=== PATIENT | female | born 2000 | race Caucasian/White ===

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

== ENCOUNTER 2021-05-30 10:31 | Emergency (ER) | payer OTHER ==
--- OUTSIDE RECORDS SUMMARY | 2021-05-30 10:34 | XMS REPORT | Continuity of Care Document ---
:2000 Author Organization [facility] t Address [address] [place] [address] Care Team Providers Name Role Phone Unknown Primary Care Physician Unavailable SNOQUALMIE Attending Clinician Unavailable MARKOS Attending Clinician Unavailable Gabi VARGAS Attending Clinician Unavailable JEIMY DO Attending Clinician Unavailable Federico ALEXANDRE Attending Clinician Unavailable Gabi Vargas MD Attending Clinician RADIOLOGY Attending Clinician Unavailable PEREZ Attending Clinician Unavailable Sharmila FRANCOIS Attending Clinician Unavailable REI Attending Clinician Unavailable Gabi VARGAS Admitting Clinician Unavailable PEREZ Admitting Clinician Unavailable Payers Payer Name Policy Type Policy Number Effective Date Expiration Date Gabi vega [facility] MEDICAID STAR [id number] 2020 00:00:00 [facility] [id number] 2018 CHOICE MEDICAID 00:00:00 [facility] [id number] 2020 [facility] 00:00:00 [place] [id number] SHARE [facility] (O) Problems Condition Condition Condition Status Onset Resolution Last Treating Co mments Source Name Details Category Date Date Treatment Clinician Date Breast Breast Disease Active 2020-03 [facility] asymmetry asymmetry 04-10 [facility]: 00 Breast Breast Disease Active 2020-03 Overview: UT mass, left mass, left 03-28 [facility] 00:00: g of this 00 note might be different from the original. 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 Omalley t 01/30 - Will schedule pt for resection No known No known Disease Unive rs active active ity of problems problems [facility] Contracept Contracept Problem Active U nivers cory cory ity of education education Kenneth rodriguez Physici ans BV BV Problem Active Univers (bacterial (bacterial it y of vaginosis) vaginosis[place] [facility] Allergies, Adverse Reactions, Alerts Allergy Allergy Status Severity Reaction(s) Onset Inactive Treating Comm ents Source Name Type Date Date Clinician NO KNOWN Drug Active Univers ALLERGIE Class ity of S [facility] Social History Social Habit Start Date Stop Date Quantity Comments Source History [facility] o f Alcohol Comment [facility] ical Branch Exposure to Not sure [facility] SARS-CoV-2 (event) Alcohol intake 2021-04-27 2021-04-27 Lifetime [facility] 00:00:00 00:00:00 non-drinker (finding) Tobacco use and 2021-01-26 2021-01-26 Smokeless tobacco [facility] exposure 00:00:00 00:00:00 non-user History [facility] 2019-11-30 2019-11-30 1 University o f Alcohol Frequency 00:00:00 00:00:00 [place] [facility] History [facility] 2019-11-30 2019-11-30 99 University o f Alcohol Std 00:00:00 00:00:00 [place] [facility] History [facility] 2019-11-30 2019-11-30 1 University o f Alcohol Binge 00:00:00 00:00:00 [place] [facility] Sex Assigned At 2000 2001 [facility] 00:00:00 00:00:00 Smoking Status Start Date Stop Date Source Never smoked tobacco [facility] Medications Ordered Filled Start Stop Current Ordering Indication Dosage Frequency Signature Comments Components Source Medication Medication Date Date Medication? Clinician (SIG) Name Name medroxyPROG 2022-0 Yes 150mg Inject 150 UT ESTERone 2-07 mg into Health (Depo-Prove 09:59: the ra) 150 35 shoulder, MG/ML thigh, or injection buttocks every 3 (three) months. medroxyPROG 2022-0 Yes 150mg Inject 150 UT ESTERone 1-17 mg into Health (Depo-Prove 09:38: the ra) 150 37 shoulder, MG/ML thigh, or injection buttocks every 3 (three) months. promethazin 2021- No [id number] 12.5mg Take 1 UT e 04-03 [id number] tablet Health (Phenergan) 00:00: 05:59 (12.5 mg 12.5 MG 00 :00 total) by tablet mouth every 8 (eight) hours if needed for nausea or vomiting for up to 5 days. naproxen 2021- Yes [id number] 500mg Take 1 UT (Naprosyn) 04-02 tablet Health 500 MG 00:00: 05:59 (500 mg tablet 00 :00 total) by mouth 2 (two) times a day with meals. naproxen 2021- Yes [id number] 500mg Take 1 UT (Naprosyn) 04-02 tablet Health 500 MG 00:00: 05:59 (500 mg tablet 00 :00 total) by mouth 2 (two) times a day with meals. promethazin 2021- No [id number] 12.5mg Q6H Insert 0.5 UT e 04-02 suppositor Health (Phenergan) 00:00: 05:59 ies (12.5 25 MG 00 :00 mg total) suppository into the rectum every 6 (six) hours if needed for nausea for up to 5 days. promethazin 2021- No [id number] 12.5mg Q6H Insert 0.5 UT e 04-02 suppositor Health (Phenergan) 00:00: 00:00 ies (12.5 25 MG 00 :00 mg total) suppository into the rectum every 6 (six) hours if needed for nausea for up to 5 days. medroxyPROG 2022-0 Yes 150mg Inject 150 UT ESTERone 1-06 mg into Health (Depo-Prove 08:38: the ra) 150 02 shoulder, MG/ML thigh, or injection buttocks every 3 (three) months. medroxyPROG 2022-0 Yes 150mg Inject 150 UT ESTERone 1-06 mg into Health (Depo-Prove 08:38: the ra) 150 02 shoulder, MG/ML thigh, or injection buttocks every 3 (three) months. acetaminoph 2021- Yes [id number] 1{tbl} Q6H Take 1 UT en-codeine 03-2511 tablet by [facility] (Tylenol w/ 00:00: 05:59 mouth Codeine #3) 00 :00 every 6 300-30 MG (six) tablet hours if needed for severe pain for up to 5 days. acetaminoph 2021- Yes [id number] 1{tbl} Q6H Take 1 UT en-codeine 03-2511 tablet by [facility] (Tylenol w/ 00:00: 05:59 mouth Codeine #3) 00 :00 every 6 300-30 MG (six) tablet hours if needed for severe pain for up to 5 days. medroxyPROG 2020-03 Yes 150mg Inject 150 UT ESTERone 1-29 mg into Health (Depo-Prove 09:18: the ra) 150 41 shoulder, MG/ML thigh, or injection buttocks every 3 (three) months. medroxyPROG 2020-03 Yes 150mg Inject 150 UT ESTERone 1-12 mg into Health (Depo-Prove 11:10: the ra) 150 30 shoulder, MG/ML thigh, or injection buttocks every 3 (three) months. medroxyPROG 2020-03 Yes 150mg Inject 150 UT ESTERone 1-08 mg into Health (Depo-Prove 13:39: the ra) 150 48 shoulder, MG/ML thigh, or injection buttocks every 3 (three) months. 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 [facility] [place] 00 Bedtime Physici ans Vital Signs Vital Name Observation Time Observation Value Comments Source Systolic blood 2021-04-27 15:59:00 97 mm[Hg] [facility] pressure Diastolic blood 2021-04-27 15:59:00 65 mm[Hg] [facility] pressure Heart rate 2021-04-27 15:59:00 68 /min [facility] Body temperature 2021-04-27 15:59:00 36.5 Darya [facility] Body height 2021-04-27 15:59:00 157.5 cm [facility] Body weight 2021-04-27 15:59:00 42.547 kg [facility] BMI 2021-04-27 15:59:00 17.16 kg/m2 [facility] Body mass index 2021-04-27 15:59:00 1.98 % [facility] (BMI) [Percentile] Per age and sex Body mass index 2021-04-06 15:37:00 1.54 % [facility] (BMI) [Percentile] Per age and sex Systolic blood 2021-04-06 15:37:00 97 mm[Hg] [facility] pressure Diastolic blood 2021-04-06 15:37:00 68 mm[Hg] [facility] pressure Heart rate 2021-04-06 15:37:00 80 /min [facility] Body temperature 2021-04-06 15:37:00 36.72 Darya [facility] Body height 2021-04-06 15:37:00 157.5 cm [facility] Body weight 2021-04-06 15:37:00 42.185 kg [facility] BMI 2021-04-06 15:37:00 17.01 kg/m2 [facility] Systolic blood 2021-03-30 19:47:00 100 mm[Hg] [facility] pressure Diastolic blood 2021-03-30 19:47:00 66 mm[Hg] [facility] pressure Heart rate 2021-03-30 19:47:00 98 /min [facility] Body temperature 2021-03-30 19:47:00 36.22 Darya [facility] Body height 2021-03-30 19:47:00 157.5 cm [facility] Body weight 2021-03-30 19:47:00 42.185 kg [facility] BMI 2021-03-30 19:47:00 17.01 kg/m2 [facility] Body mass index 2021-03-30 19:47:00 1.54 % [facility] (BMI) [Percentile] Per age and sex Oxygen saturation in 2021-03-30 19:47:00 98 /min [facility] Arterial blood by Pulse oximetry Systolic blood 2021-03-26 14:38:00 107 mm[Hg] [facility] pressure Diastolic blood 2021-03-26 14:38:00 73 mm[Hg] [facility] pressure Heart rate 2021-03-26 14:38:00 63 /min [facility] Body temperature 2021-03-26 14:38:00 36.78 Darya [facility] Body height 2021-03-26 14:38:00 157.5 cm [facility] Body weight 2021-03-26 14:38:00 42.729 kg [facility] BMI 2021-03-26 14:38:00 17.23 kg/m2 [facility] Body mass index 2021-03-26 14:38:00 2.21 % [facility] (BMI) [Percentile] Per age and sex Systolic blood 2021-01-30 17:09:00 111 mm[Hg] [facility] pressure Diastolic blood 2021-01-30 17:09:00 74 mm[Hg] [facility] pressure Heart rate 2021-01-30 17:09:00 70 /min [facility] Body temperature 2021-01-30 17:09:00 36.83 Darya [facility] Body height 2021-01-30 17:09:00 157.5 cm [facility] Body weight 2021-01-30 17:09:00 44.09 kg [facility] BMI 2021-01-30 17:09:00 17.78 kg/m2 [facility] Body mass index 2021-01-30 17:09:00 4.78 % [facility] alth (BMI) [Percentile] Per age and sex Systolic blood 2021-01-26 19:31:00 97 mm[Hg] [facility] pressure Diastolic blood 2021-01-26 19:31:00 64 mm[Hg] [facility] pressure Heart rate 2021-01-26 19:31:00 61 /min [facility] Body temperature 2021-01-26 19:31:00 36.67 Darya [facility] Body height 2021-01-26 19:31:00 157.5 cm [facility] Body weight 2021-01-26 19:31:00 44.271 kg [facility] BMI 2021-01-26 19:31:00 17.85 kg/m2 [facility] Body mass index 2021-01-26 19:31:00 5.21 % [facility] He alth (BMI) [Percentile] Per age and sex Oxygen saturation in 2021-01-26 19:31:00 99 /min [facility] Arterial blood by Pulse oximetry Systolic blood 2021-01-06 19:12:00 105 mm[Hg] Univer sity of pressure [facility] Diastolic blood 2021-01-06 19:12:00 70 mm[Hg] Unive rsity of pressure [facility] Heart rate 2021-01-06 19:12:00 82 /min Universi ty of [facility] Body temperature 2021-01-06 19:12:00 36.44 Darya Univ ersity of [facility] Respiratory rate 2021-01-06 19:12:00 16 /min Univ ersity of [facility] Body weight 2021-01-06 19:12:00 43.545 kg Universi ty [facility] Systolic blood 2019-05-07 10:05:00 104 mm[Hg] Univer sity of pressure [place] [facility] Diastolic blood 2019-05-07 10:05:00 68 mm[Hg] Unive rsity of pressure [place] [facility] Body height 2019-05-07 10:05:00 65 [in_us] [facility]i ty [facility] [place] [facility] Weight 2019-05-07 10:05:00 94 [lb_av] [facility]i ty [facility] [place] [facility] Body mass index 2019-05-07 10:05:00 15.64 kg/m2 Unive rsity of (BMI) [Ratio] [place] [facility] Body temperature 2019-05-07 10:05:00 98.2 [degF] Univ ersity of [place] [facility] Heart Rate 2019-05-07 10:05:00 101 /min Universi ty [facility] Physician s Procedures Procedure Date / Time Performed Performing Clinician Lb Patricio [facility] - Affirm 2019-05-07 00:00:00 [facility] VPIII (BV Panel) Physicians . [facility] - 2019-05-07 00:00:00 [place] GC/Chlamydia Physicians Encounters Start End Encounter Admission Attending Care Care Encounter Source Date/Time Date/Time Type Type Clinicians Facility Department ID 2021-04-27 Outpatient SNOQUALMIE, [facility] [id number] [place] 10:38:54 [facility] 2021-04-03 Outpatient SNOQUALMIE, [facility] [id number] [place] 13:20:22 [facility] 2021-03-24 Outpatient SNOQUALMIE, [facility] [id number] [place] 14:40:53 [facility] 2021-03-17 Outpatient MARKOS, [facility] [id number] [place] 11:05:58 NERIS [facility] 2021-02-03 Outpatient SNOQUALMIE, [facility] [id number] [place] 11:27:03 [facility] 2021-01-21 Outpatient SNOQUALMIE, [facility] [id number] [place] 08:52:58 [facility] 2021-01-[address] TAN[facility] [id number] Univers 10:22:15 JAMILA wisdom [facility] 2021-04-27 2021-04-27 Office [place], [facility] 6410 [id number] [place] 09:45:00 10:42:[address] [id number] Health [id number] 2021-04-06 2021-04-06 Office [place], [facility] 6410 [id number] [place] 09:30:00 11:12:[address] [id number] Health [id number] 2021-03-30 2021-03-30 Office MARKOS [facility] [id number] [place] 13:30:00 13:45:00 Visit NERIS SOW [id number] H [facility] MEDICAL [id number] [facility] [id number] 2021-03-26 2021-03-26 Office Ernestina, [facility] 6410 [id number] [place] 08:30:00 09:07:[address] [id number] Health [id number] 2021-03-24 2021-03-24 Outpatient MARKOS [facility] TANVI 7500 [facility] 05:20:00 23:59:00 NERIS 2021-02-27 2021-02-27 Orders Janis Caballero [facility] 6410 [id number] [place] 00:00:00 00:00:[address] [id number] Health [id number] 2021-01-30 2021-01-30 Office EMMIE Do 6410 [id number] [place] 10:15:10 11:45:[address] [id number] Health [id number] 2021-01-26 2021-01-26 Office EMMIE Do [id number] [place] 12:40:56 14:11:32 Visit Neris SOW [id number] H [facility] [id number] [facility] [id number] 2021-01-19 2021-01-19 Outpatient R ALICIA [facility] [id number] [facility] 09:45:00 09:45:00 JAMILA [facility] 2021-01-19 2021-01-19 Outpatient R [facility] [id number] Univers 09:45:00 09:45:00 [id number] [facility] 2021-01-09 2021-01-09 Prep For Alicia [facility] [id number] Univers 00:00:00 00:00:00 Surgery Jamila Jose [id number] i ty [place] [id number] Kenneth Calderón [id number] [address] 2021-01-06 2021-01-06 Office Alicia [facility] [id number] Univers 13:28:17 15:48:00 Visit Jamila Rodriguez [place] [id number] i ty of [place] [id number] Osmanfritz rodriguez Kaitlynn [id number] Ar dical [place] [address] [facility] 2021-01-06 2021-01-06 Outpatient R ALICIA, [facility] [id number] Univers 14:30:00 14:30:00 JAMILA [id number] [facility] 2021-01-06 2021-01-06 [facility] [id number] Univers 14:30:00 14:30:00 JAMILA [facility] 2020-12-30 2020-12-30 Outpatient [facility] [id number] Univers 09:00:00 09:00:00 [id number] [facility] 2020-12-30 2020-12-30 Outpatient R RADIOLOGY [facility] [id number] Univers 00:00:00 00:00:00 [facility] 2020-12-19 2020-12-19 Outpatient R RADIOLOGY [facility] [id number] Univers 11:30:00 11:30:00 [id number] [facility] 2020-12-19 2020-12-19 Outpatient R RADIOLOGY [facility] [id number] Univers 00:00:00 00:00:00 [facility] 2020-07-21 2020-07-21 Outpatient [facility] [id number] [place] 01:34:00 01:34:00 [id number] 2020-04-29 2020-04-29 Outpatient R ADUM, [facility] [id number] Univers 13:00:00 13:00:00 RENY [id number] [facility] 2020-04-29 2020-04-29 Outpatient R ADUM, [facility] [id number] Univers 13:00:00 13:00:00 RENY [facility] 2020-04-22 2020-04-22 Outpatient R ADUM, [facility] [id number] Univers 11:00:00 11:00:00 RENY [id number] [facility] 2020-04-22 2020-04-22 Outpatient R ADUM, [facility] [id number] Univers 11:00:00 11:00:00 RENY [facility] 2020-04-10 2020-04-10 Outpatient R ADUM, [facility] [id number] Univers 14:00:00 14:00:00 RENY [id number] [facility] 2020-04-10 2020-04-10 Outpatient R ADUM, [facility] [id number] Univers 14:00:00 14:00:00 RENY [facility] 2019-12-28 2019-12-28 Outpatient R ADUM, [facility] [id number] Univers 09:00:00 09:00:00 RENY [facility] 2019-12-28 2019-12-28 Outpatient R ADUM, [facility] [id number] Univers 09:00:00 09:00:00 RENY [facility] 2019-11-30 2019-11-30 Outpatient R [facility] [id number] Univers 10:15:00 10:15:00 [id number] [facility] 2019-11-30 2019-11-30 Outpatient R ADUM, [facility] [id number] Univers 08:30[facility]00 [facility] 2019-05-07 [facility] [id number] Univers 10:00:00 10:00:00 t; [place] ROTHMAN y - it y Boy MINAYAa Benita Rainey M.D. ans Results Test Description Test Time Test Comments Results Result Comments Source . [facility] - GC/Chlamydia 2019-05-07 00:00:00 Test Item Value Reference Range Interpretation Comme nts Case (test code = Case) Click ImageLink button for report. N Specimen 1 (test code = Specimen 1) Click ImageLink button for repo rt. N [facility] Physicians
[2021-05-30] MEDS ORDERED: KETOROLAC 30 MG/ML INJ ONE (11:12)
[2021-05-30] MEDS ORDERED: NA CHLORIDE 0.9% 1,000 ML ONE (11:12)
[2021-05-30] MEDS ORDERED: ONDANSETRON 4 MG/2 ML VIAL ONE (11:12)
[2021-05-30 11:22] LABS: Absolute Lymphocytes (CBC) 1.1 K/uL (0.7-4.9); Hematocrit 41.6 % (36.0-45.0); Lymphocytes % 6.9 % (15.3-44.8); MPV 8.9 fL (7.6-11.3)
[2021-05-30 11:28] LABS: Urine Blood Negative (Negative); Urine Glucose Negative (Negative); Urine Protein Negative (Negative); Urine Specific Gravity 1.025 (1.005-1.030); Urine pH 6.5 (5.0-7.0)
[2021-05-30 11:32] LABS: Potassium 3.9 mmol/L (3.5-5.1)
[2021-05-30 11:39] LABS: Urine Specific Gravity/Preg 1.025 (1.005-1.030)
--- NOTE | 2021-05-30 12:02 | RAD REPORT ---
EXAM DESCRIPTION: CT - Head C Spine Cap Bruce Huynh - 05/30/2021 11:47 am CLINICAL HISTORY: Trauma, head and neck injury. Chest, abdomen and pelvis pain. Pain;Swelling COMPARISON: No comparisons TECHNIQUE: CT head without contrast. CT cervical spine without contrast with coronal and sagittal reformatted images. CT chest, abdomen and pelvis with IV contrast (approximately 100 mL nonionic IV contrast) with kitchen l and sagittal reformatted images of the spine. All CT scans are performed using dose optimization technique as appropriate and may include automated exposure control or mA/KV adjustment according to patient size. FINDINGS: CT HEAD WITHOUT CONTRAST: No intracranial hemorrhage, hydrocephalus or extra-axial fluid collection. No areas of brain edema o r midline shift. The paranasal sinuses and mastoids are clear. The calvarium is intact. CT CERVICAL SPINE WITHOUT CONTRAST: No fracture or subluxation. The prevertebral soft tissues are normal in thickness. CT CHEST, ABDOMEN, PELVIS WITH CONTRAST: The lungs are clear.No pneumothorax or pericardial/pleural fluid. No evidence of intra-abdominal visceral injury, free fluid or free air. No concerning pelvic findings. No fractures. IMPRESSION: Negative for acute traumatic findings.
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
--- NOTE | 2021-05-30 12:44 | EDPHYS ---
Physician Documentation [facility] Name: Surinder Bach Age: 20 yrs Sex: Female : 2000 Arrival Date: 05/30/2021 Time: 10:32 Bed 10 Private MD: ED Physician Jayesh Roy HPI: 05/30 12:39 This 20 yrs old Female presents to ER via Ambulatory with complaints of Closed jonas Head Injury-Adult, Nausea. 12:39 The patient presents to the emergency department with nausea, vomiting, that is jonas intermittent. Onset: The symptoms/episode began/occurred just prior to arrival. 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 - Social history:: Smoking status: Patient denies any tobacco usage or history of. ROS: 12:40 Constitutional: Negative for fever, chills, and weight loss, Eyes: Negative for injury, jonas pain, redness, and discharge, ENT: Negative for injury, pain, and discharge, Neck: Negative for injury, pain, and swelling, Cardiovascular: Negative for chest pain, palpitations, and edema, Respiratory: Negative for shortness of breath, cough, wheezing, and pleuritic chest pain, Abdomen/GI: Negative for abdominal pain, nausea, vomiting, diarrhea, and constipation, Back: Negative for injury and pain, : Negative for injury, bleeding, discharge, and swelling, MS/Extremity: Negative for injury and deformity, Skin: Negative for injury, rash, and discoloration, Psych: Negative for depression, anxiety, suicide ideation, homicidal ideation, and hallucinations, Allergy/Immunology: Negative for hives, rash, and allergies, Endocrine: Negative for neck swelling, polydipsia, polyuria, polyphagia, and marked weight changes, Hematologic/Lymphatic: Negative for swollen nodes, abnormal bleeding, and unusual bruising. 12:40 Neuro: Positive for headache, of the scalp. Exam: 12:40 Constitutional: This is a well developed, well nourished patient who is awake, alert, jonas and in no acute distress. Eyes: Pupils equal round and reactive to light, extra-ocular motions intact. Lids and lashes normal. Conjunctiva and sclera are non-icteric and not injected. Cornea within normal limits. Periorbital areas with no swelling, redness, or edema. ENT: Nares patent. No nasal discharge, no septal abnormalities noted. Tympanic membranes are normal and external auditory canals are clear. Oropharynx with no redness, swelling, or masses, exudates, or evidence of obstruction, uvula midline. Mucous membranes moist. Neck: Trachea midline, no thyromegaly or masses palpated, and no cervical lymphadenopathy. Supple, full range of motion without nuchal rigidity, or vertebral point tenderness. No Meningismus. Chest/axilla: Normal chest wall appearance and motion. Nontender with no deformity. No lesions are appreciated. Cardiovascular: Regular rate and rhythm with a normal S1 and S2. No gallops, murmurs, or rubs. Normal PMI, no JVD. No pulse deficits. Respiratory: Lungs have equal breath sounds bilaterally, clear to auscultation and percussion. No rales, rhonchi or wheezes noted. No increased work of breathing, no retractions or nasal flaring. Abdomen/GI: Soft, non-tender, with normal bowel sounds. No distension or tympany. No guarding or rebound. No evidence of tenderness throughout. Back: No spinal tenderness. No costovertebral tenderness. Full range of motion. Skin: Warm, dry with normal turgor. Normal color with no rashes, no lesions, and no evidence of cellulitis. MS/ Extremity: Pulses equal, no cyanosis. Neurovascular intact. Full, normal range of motion. Neuro: Awake and alert, GCS 15, oriented to person, place, time, and situation. Cranial nerves II-XII grossly intact. Motor strength 5/5 in all extremities. Sensory grossly intact. Cerebellar exam normal. Normal gait. Psych: Awake, alert, with orientation to person, place and time. Behavior, mood, and affect are within normal limits. 12:40 Head/face: Noted is contusion, that is superficial, of the left side of the back of head, left occipital area, left base of the skull, right side of the back of head, right occipital area and right base of the skull. Vital Signs: 10:44 BP 119 / 80; Pulse 74; Resp 18; Temp 99.0; Pulse Ox 100% ; Weight 41.73 kg; Height 5 ww ft. 2 in. (157.48 cm); Pain 6/10; 10:44 Body Mass Index 16.83 (41.73 kg, 157.48 cm) ww Rui Coma Score: 10:44 Eye Response: spontaneous(4). Verbal Response: oriented(5). Motor Response: obeys commands(6). Total: 15. 12:41 Eye Response: spontaneous(4). Verbal Response: oriented(5). Motor Response: obeys [facility] commands(6). Total: 15. MDM: 10:52 Patient medically screened. jonas 12:41 Differential diagnosis: Contusion of head, Hematoma on Laceration of Intracranial jonas bleed- Concussion cerebral contusion. Data reviewed: vital signs, nurses notes, lab test result(s), radiologic studies, CT scan. Data interpreted: sample maker: not applicable for this patient encounter. rate is 74 beats/min, rhythm is regular, Pulse oximetry: on room air is 100 %. Test interpretation: by ED physician or midlevel provider: CT TRAUMA . 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 05/30 10:53 Order name: Basic Metabolic Panel; Complete Time: 12:10 jonas 05/30 10:53 Order name: CBC with Diff [facility] 05/30 10:53 Order name: Type And Screen [facility] 05/30 10:53 Order name: CT Traumagram (Head C Spine CAP W Con); Complete Time: 12:10 jonas 05/30 11:28 Order name: Urine Dipstick-Ancillary; Complete Time: 12:10 EDAK 05/30 11:31 Order name: Test Urine - POC; Complete Time: 12:10 sp 05/30 10:53 Order name: Labs collected and sent; Complete Time: 11:12 jonas 05/30 10:53 Order name: Urine Dipstick-Ancillary (obtain specimen); Complete Time: 11:43 jonas 05/30 10:53 Order name: Urine Test (obtain specimen); Complete Time: 11:43 [facility] Administered Medications: 11:15 Drug: NS 0.9% 1000 ml Route: IV; Rate: 1 bolus; Site: right antecubital; aa5 12:25 Follow up: IV Status: Completed infusion; IV Intake: 1000ml aa5 11:52 Drug: Ketorolac 30 mg Route: IVP; Site: right antecubital; aa5 12:25 Follow up: Response: No adverse reaction aa5 11:58 Drug: Zofran (Ondansetron) 4 mg Route: IVP; Infused Over: 2 mins; Site: right aa5 antecubital; 12:25 Follow up: Response: No adverse reaction aa5 Disposition Summary: 05/30/21 12:44 Discharge Ordered Location: Home jonas Problem: new jonas Symptoms: have improved jonas Condition: Stable jonas Diagnosis - Fall (on) (from) other stairs and steps jonas - Unspecified injury of head, initial encounter jonas - Low back pain jonas - Contusion of lower back and pelvis jonas Followup: jonas - With: Private Physician - When: 2 - 3 days - Reason: Recheck today's complaints, Continuance of care, Re-evaluation by your physician Followup: jonas - With: Harsh Lim MD - When: 2 - 3 days - Reason: Recheck today's complaints, Re-evaluation by your physician Discharge Instructions: - Discharge Summary Sheet jonas - Head Injury, Adult jonas - Musculoskeletal Pain jonas - Fall Prevention in the Home, Adult jonas - Fall Prevention in the Home, Adult, [id number] Forms: - Medication Reconciliation Form jonas - Thank You Letter jonas - Antibiotic Education jonas - Prescription Opioid Use [facility] Prescriptions: - Motrin IB 200 mg Oral Tablet - take 2 tablet by ORAL route every 6 hours As needed as needed with food; 30 jonas tablet; Refills: 0, Product Selection Permitted Signatures: Dispatcher [employer] Jayesh Posada MD MD cha Calderon, Audri, RN RN aa5 Marti Reyes RN RN ww
[2021-05-30 13:40] VITALS: BP 119/80; TEMP 99; O2SAT 100
[2021-05-30 13:46] LABS: Blood Morphology Comment NOT SEEN (NOT SEEN); Platelet Estimate ADEQ; White Blood Cell Scan OK (OK)
== END 2021-05-30 13:05 | disposition home or self-care (01) ==
LOC: ER 10:31
DX: S00.83XA Contusion of other part of head, initial encounter (principal); S30.0XXA Contusion of lower back and pelvis, initial encounter; M54.50 Low back pain, unspecified; F41.9 Anxiety disorder, unspecified; W10.8XXA Fall (on) (from) other stairs and steps, initial encounter
CPT/HCPCS: 96361; 85025; 80048; 36415; 86900; 86850; 81025; 86901; 81003; 70450; 72125; 71260; 74177; 96375; 96374; 99284; Q9967; J7030; J2405

== ENCOUNTER 2021-08-29 20:10 | Emergency (ER) | payer OTHER ==
--- OUTSIDE RECORDS SUMMARY | 2021-08-29 20:14 | XMS REPORT | Continuity of Care Document ---
:2000 Author Organization [facility] t Address [address] [place] [address] Care Team Providers Name Role Phone PCP, DOES NOT HAVE A Primary Care Physician Unavailable MARKOS Attending Clinician Unavailable TAKOTNA Attending Clinician Unavailable Gabi VARGAS Attending Clinician Unavailable JEIMY DO Attending Clinician Unavailable Federico ALEXANDRE Attending Clinician Unavailable Alicia CLIFFORD S Attending Clinician RADIOLOGY Attending Clinician Unavailable PEREZ Attending Clinician Unavailable Sharmila FRANCOIS Attending Clinician Unavailable REI Attending Clinician Unavailable Gabi VARGAS Admitting Clinician Unavailable PEREZ Admitting Clinician Unavailable Payers Payer Name Policy Type Policy Number Effective Date Expiration Date S silvia [facility] MEDICAID STAR [id number] 2020 00:00:00 [facility] [id number] 2018 CHOICE MEDICAID 00:00:00 [facility] [id number] 2020 [facility] 00:00:00 [facility] SHARE PROGRAM (O) Problems Condition Condition Condition Status Onset Resolution Last Treating Co mments Source Name Details Category Date Date Treatment Clinician Date Breast Breast Disease Active 2020-03 [facility] asymmetry asymmetry 04-10 [facility] 00:[facility]: 00 Breast Breast Disease Active 2020-03 Overview: [place] mass, left mass, left 03-28 [facility] 00:00: g of this 00 note [...] rs active active ity of problems problems [facility] Contracept Contracept Problem Active U T cory cory Physici education education ans BV BV Problem Active UT (bacterial (bacterial Ph ysici vaginosis) vaginosis) an s Allergies, Adverse Reactions, Alerts Allergy Allergy Status Severity Reaction(s) Onset Inactive Treating Comm ents Source Name Type Date Date Clinician NO KNOWN Drug Active Univers ALLERGIE Class ity of S [facility] Social History Social Habit Start Date Stop Date Quantity Comments Source History [facility] o f Alcohol Comment [place] [facility] Exposure to Not sure [facility] SARS-CoV-2 (event) Alcohol intake 2021-06-22 2021-06-22 Lifetime [facility] 00:00:00 00:00:00 non-drinker (finding) Tobacco use and 2021-01-26 2021-01-26 Smokeless tobacco [facility] exposure 00:00:00 00:00:00 non-user History [facility] 2019-11-30 2019-11-30 1 University o f Alcohol Frequency 00:00:00 00:00:00 [place] [facility] History [facility] 2019-11-30 2019-11-30 99 University o f Alcohol Std 00:00:00 00:00:00 [place] [facility] History [facility] 2019-11-30 2019-11-30 1 University o f Alcohol Binge 00:00:00 00:00:00 [place] [facility] Sex Assigned At [birth year] [facility] 00:00:00 00:00:00 Smoking Status Start Date Stop Date Source Never smoked tobacco [facility] Medications Ordered Filled Start Stop Current Ordering Indication Dosage Frequency Signature Comments Components Source Medication Medication Date Date Medication? Clinician (SIG) Name Name medroxyPROG 2022-0 Yes 150mg Inject 150 UT ESTERone 4-04 mg into Health (Depo-Prove 09:28: the ra) 150 04 shoulder, MG/ML thigh, or injection buttocks every [...] injection buttocks every 3 (three) months. promethazin 2021-2021- No [id number] 12.5mg Take 1 UT e 04-03 [id number] tablet Health (Phenergan) 00:00: 05:59 (12.5 mg 12.5 MG 00 :00 total) by tablet mouth every 8 (eight) hours if needed for nausea or vomiting for up to 5 days. naproxen 2021- No [id number] 500mg Take 1 UT (Naprosyn) 04-02 tablet Health 500 MG 00:00: 05:59 (500 mg tablet 00 :00 total) by mouth 2 (two) times a day with meals. naproxen 2021- No [id number] 500mg Take 1 UT (Naprosyn) 04-02 tablet Health 500 MG 00:00: 05:59 (500 mg tablet 00 :00 total) by mouth 2 (two) times a day with meals. promethazin 2021- No [id number] 12.5mg Q6H Insert 0.5 UT e 04-02 suppositor Health (Phenergan) 00:00: 05:59 ies (12.5 25 MG 00 :00 mg total) suppository into the rectum every 6 (six) hours if needed for nausea for up to 5 days. promethazin 2021- No [id number] 12.5mg Q6H Insert 0.5 UT e 04-02 [...] buttocks every 3 (three) months. acetaminoph 2021- No [id number] 1{tbl} Q6H Take 1 UT en-codeine 1-05 -11 tablet by [facility] (Tylenol w/ 00:00: 05:59 mouth Codeine #3) 00 :00 every 6 300-30 MG (six) tablet hours if needed for severe pain for up to 5 days. acetaminoph 2021- No [id number] 1{tbl} Q6H Take 1 UT en-codeine 1-05 -11 tablet by [facility] (Tylenol w/ 00:00: 05:59 mouth Codeine #3) [...] No Univers medications 0-19 ity of 14:14: [address] No known 2020-03 No Univers medications 0-19 ity of 14:14: [address] No known 2020-03 No Univers medications 0-19 ity of 14:14: [address] Clindesse 2 Clindesse 2 2019-0 Yes STEPHAN 1 INSERT 1 UT % Vaginal % Vaginal 3-03 REI APPLICATOR Physici Cream Cream 00:00: M.D. Once At ans 00 Bedtime Vital Signs Vital Name Observation Time Observation Value Comments Source Systolic blood 2021-06-22 14:28:00 97 mm[Hg] [facility] pressure Diastolic blood 2021-06-22 14:28:00 66 mm[Hg] [facility] pressure Heart rate 2021-06-22 14:28:00 89 /min [facility] Body temperature 2021-06-22 14:28:00 36.33 Darya [facility] Body height 2021-06-22 14:28:00 157.5 cm [facility] Body weight 2021-06-22 14:28:00 44.634 kg [facility] BMI 2021-06-22 14:28:00 18.00 kg/m2 [facility] Body mass index 2021-06-22 14:28:00 6.16 % [facility] (BMI) [Percentile] Per age and sex Systolic blood 2021-04-27 15:59:00 97 mm[Hg] [facility] pressure Diastolic blood 2021-04-27 15:59:00 65 mm[Hg] [...] Oxygen saturation in 2021-03-30 19:47:00 98 /min [facility] Arterial blood by Pulse oximetry Systolic [...] h BMI 2021-01-26 19:31:00 17.85 [facility] 2021-01-26 19:31:00 5.21 % [facility]th (BMI) [Percentile] Per age and sex Oxygen saturation in 2021-01-26 19:31:00 99 /min [facility] Arterial blood by Pulse oximetry Respiratory rate 2021-01-06 19:12:00 16 /min [facility] weight 2021-01-06 19:12:00 43.545 kg [facility] Systolic blood 2021-01-06 19:12:00 105 mm[Hg] Univer [facility] Diastolic blood 2021-01-06 19:12:00 70 mm[facility]Hg] [facility] Heart rate 2021-01-06 19:12:00 82 /min [facility] Body temperature 2021-01-06 19:12:00 36.44 Darya [facility] Systolic blood 2019-05-07 10:05:00 104 mm[Hg] [facility] pressure Diastolic blood 2019-05-07 10:05:00 68 mm[Hg] [facility] pressure Body height 2019-05-07 10:05:00 65 [in_us] [facility] Weight 2019-05-07 10:05:00 94 [lb_av] [facility] Body mass index 2019-05-07 10:05:00 15.64 kg/m2 [facility] (BMI) [Ratio] Body temperature 2019-05-07 10:05:00 98.2 [degF] [facility] Heart Rate 2019-05-07 10:05:00 101 /min [facility] Procedures Procedure Date / Time Performed Performing Clinician Lb Patricio [facility] - Affirm VPIII (BV 2019-05-07 00:00:00 [facility] Panel) . [facility] - GC/Chlamydia 2019-05-07 00:00:00 [facility] Encounters Start End Encounter Admission Attending Care Care Encounter Source Date/Time Date/Time Type Type Clinicians Facility Department ID 2021-06-23 Outpatient DO, [facility] [id number] [place] 01:03:[id number] [place] [address] 2021-06-22 Outpatient TAKOTNA, [facility] [id number] [place] 09:24:[address] [place] [id number] [place] [address] 2021-06-19 Outpatient TAKOTNA, [facility] [id number] [place] 08:25:48 DEA [id number] [facility] 2021-04-03 Outpatient TAKOTNA, [facility] [id number] [place] 13:20:22 [facility] 2021-03-24 Outpatient TAKOTNA, [facility] [id number] [place] 14:40:53 [facility] 2021-03-17 Outpatient DO, [facility] [id number] [place] 11:05:58 [facility] 2021-02-03 Outpatient TAKOTNA, [facility] [id number] [place] 11:27:03 [facility] 2021-01-21 Outpatient TAKOTNA, [facility] [id number] [place] 08:52:58 [facility] 2021-01-15 Outpatient Brian VARGAS [facility] TANVI [id number] [facility] 10:22:15 JAMILA wisdom [facility] 2021-06-22 2021-06-22 Office [place], UTP 6410 [id number] [place] 09:15:00 10:19:03 Visit Dea [facility] [id number] Health [id number] 2021-04-27 2021-04-27 Office [place], [facility]TP 6410 [id number] [place] 09:45:00 10:42:08 Visit Dea [place] [id number] Health [id number] [id number] 2021-04-06 2021-04-06 Office [place], UTP 6410 [id number] [place] 09:30:00 11:12:46 Visit Dea [place] [id number] Health [id number] 2021-03-30 2021-03-30 Office EMMIE DO [id number] [place] 13:30:00 13:45:00 Visit NERIS SOW [id number] H [facility] MEDICAL [id number] [facility] [id number] 1 2021-03-26 2021-03-26 Office [place], UTP 6410 [id number] [place] 08:30:00 09:07:52 Visit Dea [place] [id number] Health [id number] 2021-03-24 2021-03-24 Outpatient MARKOS [facility] TANVI [id number] [facility] 05:20:00 23:59:00 NERIS 2021-02-27 2021-02-27 Orders Janis Caballero [facility] [id number] [place] 00:00:00 00:00:[address] [id number] Health [id number] [id number] 2021-01-30 2021-01-30 Office EMMIE Do 6410 [id number] [place] 10:15:10 11:45:56 Visit Dea [place] [id number] Health [id number] [id number] 2021-01-26 2021-01-26 Office EMMIE Do [id number] [place] 12:40:56 14:11:32 Visit Neris SOW [id number] H [facility] [id number] [facility] [id number] 1 2021-01-19 2021-01-[address] [facility] [id number] Univers 09:45:00 09:45:00 JAMILA [facility] 2021-01-19 2021-01-19 Outpatient R [facility] [id number] Univers 09:45:00 09:45:00 [id number] [facility] 2021-01-09 2021-01-09 Prep For [facility] [id number] Univers 00:00:00 00:00:00 Surgery Jamila Gabi Rebeca [id number] [facility] [id number] [facility] 188 [facility] 2021-01-06 2021-01-06 [facility] [id number] Univers 13:28:17 15:48:00 Visit Jamila Jose [id number] [facility] [id number] [id number] [place] dical nal 419 [facility] 2021-01-06 2021-01-06 Out[facility] [id number] Univers 14:30:00 14:30:00 JAMILA [id number] [facility] 2021-01-06 2021-01-06 [facility] [id number] Univers 14:30:00 14:30:00 JAMILA [facility] 2020-12-30 2020-12-30 Outpatient [facility] [id number] Univers 09:00:00 09:00:00 [id number] ity [facility] 2020-12-30 2020-12-30 Outpatient R RADIOLOGY [facility] [id number] Univers 00:00:00 00:00:00 ity [facility] 2020-12-19 2020-12-19 Outpatient R RADIOLOGY [facility] [id number] Univers 11:30:00 11:30:00 [id number] ity [facility] 2020-12-19 2020-12-19 Outpatient R RADIOLOGY [facility] [id number] Univers 00:00:00 00:00:00 ity [facility] 2020-07-21 2020-07-21 Outpatient [facility]_S [facility] [id number] [facility] 01:34:00 01:34:00 [id number] 2020-04-29 2020-04-29 Outpatient R ADUM, [facility] [id number] Univers 13:00:00 13:00:00 RENY [id number] [facility] 2020-04-29 2020-04-29 Outpatient R ADUM, [facility] [id number] Univers 13:00[facility]00 [facility] 2020-04-22 Outpatient R ADUM, [facility] [id number] Univers 11:00:00 11:00:00 RENY [id number] [facility] 2020-04-22 2020-04-22 Outpatient R ADUM, [facility] [id number] Univers 11:00:00 11:00:00 RENY [facility] 2020-04-10 2020-04-10 Outpatient R ADUM, [facility] [id number] Univers 14:00:00 14:00:00 RENY [id number] [facility] 2020-04-10 2020-04-10 Outpatient R ADUM, [facility] [id number] Univers 14:00:00 [facility]:00[facility] 2019-12-28 2019-12-28 Outpatient R ADUM, [facility] [id number] Univers 09:00:00 09:00:00 RENY [facility] 2019-12-28 2019-12-28 Outpatient R [facility] [id number] Univers 09:00:00 09:00:00 RENY [facility] 2019-11-30 2019-11-30 Outpatient R [facility] [id number] Univers 10:15:00 10:15:00 [id number] [facility] 2019-11-30 2019-11-30 [facility] [id number] Univers 08:30:00 08:30:00 [facility] 2019-05-07 2019-05-07 EMMIE [place] [id number] [place] 10:00:00 10:00:00 michaela ROTHMAN M.D. lty - Ph Yesy Curry M.D. Results Test Description Test Time Test Comments Results Result Comments Source . [facility] - GC/Chlamydia 2019-05-07 00:00:00 Test Item Value Reference Range Interpretation Comme nts Case (test code = Case) Click ImageLink button for report. N Specimen 1 (test code = Specimen 1) Click ImageLink button for repo rt. N [facility]
[2021-08-29 21:35] LABS: Urine Blood Negative (Negative); Urine Glucose Negative (Negative); Urine Protein 2+ (Negative); Urine Specific Gravity >=1.030 (1.005-1.030)
[2021-08-29 21:38] LABS: Absolute Lymphocytes (CBC) 0.4 K/uL (0.7-4.9); Lymphocytes % 15.3 % (15.3-44.8); MPV 9.8 fL (7.6-11.3); RBC Red Blood Cell Count 4.91 M/uL (3.86-4.86)
[2021-08-29 21:58] LABS: Albumin 3.9 g/dL (3.4-5.0); Bilirubin Total 0.3 mg/dL (0.2-1.0); Potassium 3.3 mmol/L (3.5-5.1); Protein, Total 7.6 g/dL (6.4-8.2)
--- NOTE | 2021-08-29 23:21 | EDPHYS ---
Physician Documentation [facility] Name: Surinder Bach Age: 21 yrs Sex: Female : 2000 Arrival Date: 08/29/2021 Time: 20:14 Bed 3 Private MD: ED Physician Paul Arriaga HPI: 08/29 23:03 This 21 yrs old Female presents to ER via Ambulatory with complaints of kb Abdominal Pain, Fever. 23:04 The patient presents with abdominal pain in the lower abdomen. Onset: The kb symptoms/episode began/occurred 3 day(s) ago. The symptoms do not radiate. Associated signs and symptoms: Pertinent positives: fever. The symptoms are described as constant. Modifying factors: The symptoms are alleviated by nothing, the symptoms are aggravated by nothing. Severity of pain: At its worst the pain was moderate in the emergency department the pain is unchanged. The patient has not experienced similar symptoms in the past. The patient has not recently seen a physician. [employer]: 20:22 LMP 06/23/2021 jb4 Historical: - Allergies: 20:22 No Known Allergies; jb4 - Home Meds: 20:22 None [Active]; jb4 - PMHx: 20:22 Anxiety; jb4 - PSHx: 20:22 Lumpectomy of breast; jb4 - Immunization history:: Adult Immunizations unknown. - Social history:: Smoking status: Patient denies any tobacco usage or history of. ROS: 23:04 Respiratory: Negative for shortness of breath, cough, wheezing, and pleuritic chest kb pain. 23:04 Constitutional: Positive for body aches, chills, fatigue, fever, malaise. 23:04 Abdomen/GI: Positive for abdominal pain, Negative for nausea, vomiting, and diarrhea. 23:04 All other systems are negative. 23:05 Back: Positive for pain at rest, of the low back area. kb Exam: 23:04 Constitutional: This is a well developed, well nourished patient who is awake, alert, kb and in no acute distress. Head/Face: Normocephalic, atraumatic. ENT: Moist Mucous membranes Cardiovascular: Regular rate and rhythm with a normal S1 and S2. No gallops, murmurs, or rubs. No pulse deficits. Respiratory: Respirations even and unlabored. No increased work of breathing. Talking in full sentences Skin: Warm, dry with normal turgor. Normal color. MS/ Extremity: Pulses equal, no cyanosis. Neurovascular intact. Full, normal range of motion. Neuro: Awake and alert, GCS 15, oriented to person, place, time, and situation. Moves all extremities. Normal gait. Psych: Awake, alert, with orientation to person, place and time. Behavior, mood, and affect are within normal limits. 23:04 Abdomen/GI: Inspection: abdomen appears normal, Bowel sounds: normal, in all quadrants, Palpation: soft, in all quadrants, mild abdominal tenderness, in the right lower quadrant and left lower quadrant. Vital Signs: 20:19 BP 122 / 79; Pulse 108; Resp 18; Temp 98.4(TE); Pulse Ox 97% on R/A; Weight 44.45 kg jb4 (R); Height 5 ft. 2 in. (157.48 cm); Pain 7/10; 21:25 BP 119 / 82; Pulse 80; Resp 18; Pulse Ox 100% on R/A; sm5 23:34 BP 116 / 90; Pulse 81; Resp 17; Pulse Ox 100% on R/A; sm5 20:19 Body Mass Index 17.92 (44.45 kg, 157.48 cm) jb4 MDM: 20:27 Patient medically screened. kb 23:03 Data reviewed: vital signs, nurses notes. Data interpreted: Pulse oximetry: on room air kb is 100 %. Interpretation: normal. 23:20 Counseling: I had a detailed discussion with the patient and/or guardian regarding: the kb historical points, exam findings, and any diagnostic results supporting the discharge/admit diagnosis, lab results, radiology results, the need for outpatient follow up, a family practitioner, to return to the emergency department if symptoms worsen or persist or if there are any questions or concerns that arise at home. 08/29 20:27 Order name: Flu; Complete Time: 21:43 kb 08/29 20:27 Order name: Strep; Complete Time: 21:43 kb 08/29 20:27 Order name: COVID-19 SARS RT PCR (Document "Date of Onset" if Symptomatic); Complete kb Time: 22:30 08/29 20:27 Order name: CBC with Diff; Complete Time: 23:31 kb 08/29 20:27 Order name: CMP; Complete Time: 22:00 kb 08/29 20:27 Order name: Lipase; Complete Time: 22:00 kb 08/29 20:27 Order name: CT Abd/Pelvis - IV Contrast Only kb 08/29 20:27 Order name: IV Saline Lock; Complete Time: 21:20 kb 08/29 20:27 Order name: Labs collected and sent; Complete Time: 21:21 kb 08/29 20:27 Order name: Urine Dipstick-Ancillary (obtain specimen); Complete Time: 21:38 kb 08/29 21:35 Order name: Urine Dipstick-Ancillary; Complete Time: 21:36 EDWI 08/29 21:41 Order name: Throat Culture EDWI 08/29 23:10 Order name: CBC Smear Scan; Complete Time: 23:31 EDWI 08/29 20:27 Order name: Urine Test (obtain specimen); Complete Time: 21:38 kb Administered Medications: No medications were administered Disposition: 08/30 07:50 Co-signature as Attending Physician, Paul Arriaga MD. [email or web address] Disposition Summary: 08/29/21 23:20 Discharge Ordered Location: Home kb Condition: Stable kb Diagnosis - Coronavirus infection, unspecified kb Followup: kb - With: Emergency Department - When: As needed - Reason: Worsening of condition Followup: kb - With: Private Physician - When: 2 - 3 days - Reason: Recheck today's complaints, Continuance of care, Re-evaluation by your physician Discharge Instructions: - Discharge Summary Sheet kb - Viral Respiratory Infection, [id number] kb - COVID-19 kb Forms: - Medication Reconciliation Form kb - Thank You Letter kb - Antibiotic Education kb - Prescription Opioid Use kb Signatures: Dispatcher [employer] EDWI Annabel Brooks, RECYCLING MANAGER-C MIGUEL A-Levi Bianchi, RN RN jb4 Paul Arriaga MD MD [email or web address] Corrections: (The following items were deleted from the chart) 08/29 23:05 23:04 Abdomen/GI: Inspection: abdomen appears normal, Bowel sounds: normal, in all kb quadrants, Palpation: soft, in all quadrants, mild abdominal tenderness, in all quadrants, kb
--- NOTE | 2021-08-29 23:21 | ER ---
Nurse's Notes [facility] Name: Surinder Bach Age: 21 yrs Sex: Female : 2000 Arrival Date: 08/29/2021 Time: 20:14 Bed 3 Private MD: Diagnosis: Coronavirus infection, unspecified Presentation: 08/29 20:19 Chief complaint: Patient states: I had a fever at home of 102.1 took 800mg of Motrin jb4 around 1700. I am having lower abdominal pain and back pain which started night. Coronavirus screen: Coronavirus screen: At this time, the client does not indicate any symptoms associated with coronavirus-19. Ebola Screen: No symptoms or risks identified at this time. Initial Sepsis Screen: Does the patient meet any 2 criteria? Temp <36.0*C (96.8*F)) or > 38.3*C (100.9*F). HR > 90 bpm. Yes Does the patient have a suspected source of infection? Yes: Acute abdominal pain. Risk Assessment: Do you want to hurt yourself or someone else? Patient reports no desire to harm self or others. Onset of symptoms was August 27, 2021. Transition of care: patient was not received from another setting of care. 20:19 Method Of Arrival: Ambulatory jb4 20:19 Acuity: ANASTASIIA 3 jb4 Triage Assessment: 20:22 General: Appears in no apparent distress. uncomfortable, Behavior is calm, cooperative, jb4 appropriate for age. Pain: Complains of pain in right lower quadrant and left lower quadrant Pain radiates to low back area Pain currently is 7 out of 10 on a pain scale. Quality of pain is described as crampy. GI: Abdomen is flat, Reports lower abdominal pain. 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 - Social history:: Smoking status: Patient denies any tobacco usage or history of. Screenin:24 Abuse screen: Denies threats or abuse. Denies injuries from another. Nutritional sm5 screening: No deficits noted. Tuberculosis screening: No symptoms or risk factors identified. Fall Risk None identified. Assessment: 21:24 General: Appears in no apparent distress. Behavior is cooperative. Pain: Complains of sm5 pain in abdomen. Neuro: No deficits noted. Valencia Agitation-Sedation Scale (RASS): 0 - Alert and Calm Level of Consciousness is awake, alert, obeys commands, Oriented to person, place, time, situation. Cardiovascular: No deficits noted. Capillary refill < 3 seconds Patient's skin is warm and dry. Respiratory: No deficits noted. Airway is patent Trachea midline Respiratory effort is even, unlabored. GI: Bowel sounds present X 4 quads. Abd is soft Reports lower abdominal pain, upper abdominal pain, intolerance of food, nausea. 23:00 Reassessment: No changes from previously documented assessment. Patient and/or family sm5 updated on plan of care and expected duration. Pain level reassessed. Vital Signs: 20:19 BP 122 / 79; Pulse 108; Resp 18; Temp 98.4(TE); Pulse Ox 97% on R/A; Weight 44.45 kg jb4 (R); Height 5 ft. 2 in. (157.48 cm); Pain 7/10; 21:25 BP 119 / 82; Pulse 80; Resp 18; Pulse Ox 100% on R/A; sm5 23:34 BP 116 / 90; Pulse 81; Resp 17; Pulse Ox 100% on R/A; sm5 20:19 Body Mass Index 17.92 (44.45 kg, 157.48 cm) jb4 ED Course: 20:14 Patient arrived in ED. bp1 20:22 Triage completed. jb4 20:22 Arm band placed on right wrist. jb4 20:24 Annabel Brooks [facility]-C [facility] kb 20:24 Paul Arriaga MD is Attending Physician. kb 21:12 Khushbu Galloway, TIMO is Primary Nurse. sm5 21:23 Lipase Sent. sm5 21:23 CMP Sent. sm5 21:23 CBC with Diff Sent. sm5 21:23 COVID-19 SARS RT PCR (Document "Date of Onset" if Symptomatic) Sent. sm5 21:23 Strep Sent. sm5 21:23 Flu Sent. sm5 21:24 Inserted saline lock: 20 gauge in right antecubital area, using aseptic technique. sm5 Blood collected. 22:28 CT Abd/Pelvis - IV Contrast Only In Process Unspecified. EDMS 23:34 Patient has correct armband on for positive identification. Bed in low position. Call sm5 light in reach. Side rails up X2. 23:34 No provider procedures requiring assistance completed. IV discontinued, intact, sm5 bleeding controlled, No redness/swelling at site. Pressure dressing applied. Administered Medications: No medications were administered Medication: 23:34 VIS not applicable for this client. 5 Outcome: 23:20 Discharge ordered by . kb 23:35 Discharged to home via wheelchair. 5 23:35 Condition: stable 23:35 Discharge instructions given to patient, Instructed on discharge instructions, follow up and referral plans. Demonstrated understanding of instructions, follow-up care. 23:35 Patient left the ED. 5 Signatures: Dispatcher [employer] EDMS Annabel Brooks, LAY MIDWIFE-C LAY MIDWIFE-Levi Bianchi, RN RN jb4 Estee Longoria Sarah, RN RN sm5
[2021-08-29 23:31] LABS: Blood Morphology Comment NOT SEEN (NOT SEEN); Platelet Estimate ADEQ; White Blood Cell Scan OK (OK)
[2021-08-30 00:26] VITALS: TEMP 98.4
[2021-08-30 00:28] VITALS: O2SAT 100
[2021-08-30 00:29] VITALS: BP 116/90
--- NOTE | 2021-08-31 12:42 | RAD REPORT ---
EXAM DESCRIPTION: CT - Abdomen Pelvis W Contrast - 08/29/2021 10:26 pm CLINICAL HISTORY: Abdominal pain. COMPARISON: None. TECHNIQUE: CT of the abdomen and pelvis was performed following intravenous administration of iodina yonatan contrast. Arterial phase images of the abdomen, and portal venous phase images of the abdomen and pelvis were obtained. Oral contrast was not administered. Axial, coronal, and sagittal soft tissue w indow reconstructions were created and sent to PACS. This exam was performed according to our departmental dose-optimization program, which includes autom ated exposure control, adjustment of the mA and/or kV according to patient size and/or use of iterati ve reconstruction technique. FINDINGS: Thoracic: No significant abnormality. Hepatobiliary: No concerning hepatic lesion identified. The portal veins are patent. The gallbladder is unremarkable. No biliary ductal dilatation. Pancreas: Unremarkable. Spleen: Unremarkable. Gastrointestinal: No evidence of bowel obstruction or perienteric inflammation. The appendix is roxana l. Adrenals: No abnormality identified in either adrenal gland. Renal: No concerning parenchymal abnormality in either kidney. No hydronephrosis or urolithiasis. Bladder/Reproductive: Mild diffuse wall thickening of the urinary bladder in the setting of underdist ention. Unremarkable CT appearance of the uterus and ovaries. Vascular/Lymphatics: No lymphadenopathy identified by CT size criteria. Abdominal aorta is normal in caliber. Musculoskeletal: No concerning osseous lesion identified. Fluid / peritoneum: Trace pelvic free fluid, likely physiologic. No free intraperitoneal air identi fied. IMPRESSION 1. Mild diffuse wall thickening of the urinary bladder in the setting of underdistentio n. Consider correlation for cystitis. 2. No additional potential acute abnormality identified in the abdomen or pelvis by CT. Electronically signed by: Gali Sandoval MD 08/29/2021 11:14 PM CDT Due to temporary technical issues with the PACS/Fluency reporting system, reports are being signed by the in house radiologist without review as a courtesy to ensure prompt reporting. The interpreting r adiologist is fully responsible for the content of the report.
== END 2021-08-29 23:35 | disposition home or self-care (01) ==
LOC: ER 20:10
DX: U07.1 COVID-19 (principal)
CPT/HCPCS: 87070; 85025; 36415; 87081; 81003; 83690; 80053; 87804 ×2; 74177; 99283; U0003; Q9967

== ENCOUNTER 2022-04-06 01:10 | Emergency (ER) | payer OTHER ==
--- OUTSIDE RECORDS SUMMARY | 2022-04-06 01:13 | XMS REPORT | Continuity of Care Document ---
:2000 Author Organization [facility] t Address [facility] [address] [place] [address] Care Team Providers Name Role Phone Unknown, Physician Primary Care Physician Unavailable DEA WASSERMAN Attending Clinician Unavailable NERIS DO Attending Clinician Unavailable JAMILA VARGAS Attending Clinician Unavailable NERIS DO Attending Clinician Unavailable Janis Caballero MA Attending Clinician Unavailable Jamila Vargas MD Attending Clinician Radiology Attending Clinician Unavailable RADIOLOGY Attending Clinician Unavailable Doctor Unassigned, [place] Attending Clinician Unavailable PEREZ Attending Clinician Unavailable SHELBY SALDANA Attending Clinician Unavailable 2, [facility] Attending Clinician Unavailable Shelby Saldana MD Attending Clinician STEPHAN MINAYA M.D. Attending Clinician Unavailable JAMILA VARGAS Admitting Clinician Unavailable PEREZ Admitting Clinician Unavailable Payers Payer Name Policy Type Policy Number Effective Date Expiration Date Gabi vega [facility] MEDICAID STAR [id number] 2020 00:00:00 [facility] [id number] 2018 [facility] MEDICAID 00:00:00 [facility] [id number] 2020 [facility] 00:00:[address] (O) Problems Condition Condition Condition Status Onset Resolution Last Treating Co mments Source Name Details Category Date Date Treatment Clinician Date Breast Breast Disease Active 2020-03 [facility] asymmetry asymmetry 04-10 [facility] Breast Breast Disease Active 2020-03 Overview: [place] mass, left mass, left 03-28 [facility] 00:00: g of this 00 note might [...] rs active active ity of problems problems [facility] Contracept Contracept Problem Active U T cory cory Physici education education ans BV BV Problem Active [facility] (bacterial (bacterial Ph ysici vaginosis) vaginosis) an s Allergies, Adverse Reactions, Alerts Allergy Allergy Status Severity Reaction(s) Onset Inactive Treating Comm ents Source Name Type Date Date Clinician NO KNOWN Drug Active Univers ALLERGIE Class ity of S [facility] Social History Social Habit Start Date Stop Date Quantity Comments Source History [facility] o f Alcohol Comment [facility] ical Branch Exposure to Not sure [facility] SARS-CoV-2 (event) Alcohol intake 2021-06-22 2021-06-22 Lifetime [facility] 00:00:00 00:00:00 non-drinker (finding) Tobacco use and 2021-01-26 2021-01-26 Smokeless tobacco [facility] exposure 00:00:00 00:00:00 non-user History [facility] 2019-11-30 2019-11-30 1 University o f Alcohol Frequency 00:00:00 00:00:00 [place] [facility] History [facility] 2019-11-30 2019-11-30 99 University o f Alcohol Std 00:00:00 00:00:00 [place] [facility] History [facility] 2019-11-30 2019-11-30 1 University o f Alcohol Binge 00:00:00 00:00:00 [place] [facility] Sex Assigned At [birth year] [facility] 00:00:00 00:00:00 Smoking Status Start Date Stop Date Source Never smoked tobacco [facility] Medications Ordered Filled Start Stop Current Ordering Indication Dosage Frequency Signature Comments Components Source Medication Medication Date Date Medication? Clinician (SIG) Name Name medroxyPROG Yes 150mg Inject 150 UT ESTERone 4-04 [...] every 3 (three) months. promethazin 2021- No [id number] 12.5mg Take 1 UT e 04-03 [id number] tablet Health (Phenergan) 00:00: 05:59 (12.5 mg 12.5 MG 00 :00 total) by tablet mouth every 8 (eight) hours if needed for nausea or vomiting for up to 5 days. naproxen 2021- No [id number] 500mg Take 1 UT (Naprosyn) 04-02 tablet Health 500 MG 00:00: 05:59 (500 mg tablet 00 :00 total) by mouth 2 (two) times a day with meals. naproxen 2021- No [id number] 500mg Take 1 UT (Naprosyn) 04-02 tablet Health 500 MG 00:00: 05:59 (500 mg tablet 00 :00 total) by mouth 2 (two) times a day with meals. promethazin 2021- No [id number] 12.5mg Q6H Insert 0.5 UT e 04-02 suppositor Health (Phenergan) 00:00: 05:59 ies (12.5 25 MG 00 :00 mg total) suppository into the rectum every 6 (six) hours if needed for nausea for up to 5 days. promethazin 2021- No [id number] 12.5mg Q6H Insert 0.5 UT e 04-02 [...] every 3 (three) months. acetaminoph 2021- No [id number] 1{tbl} Q6H Take 1 UT en-codeine 1-05 01-11 tablet by [facility] (Tylenol w/ 00:00: 05:59 mouth Codeine #3) 00 :00 every 6 300-30 MG (six) tablet hours if needed for severe pain for up to 5 days. acetaminoph 2021-2021- No [id number] 1{tbl} Q6H Take 1 UT en-codeine 1-05 01-11 tablet by [facility] (Tylenol w/ 00:00: 05:59 mouth Codeine #3) [...] No Univers medications 0-19 ity of 14:14: [address] No known 2020-03 No Univers medications 0-19 ity of 14:14: [address] No known 2021-1 No Univers medications 0-19 ity of 14:14: [address] Branch Clindesse 2 Clindesse 2 2020-0 Yes STEPHAN 1 INSERT 1 UT % [...] Oxygen saturation in 2021-03-30 19:47:00 98 /min [facility] Arterial blood by Pulse oximetry Systolic blood [...] Oxygen saturation in 2021-01-26 19:31:00 99 /min [facility] Arterial blood by Pulse oximetry Systolic blood 2021-01-06 19:12:00 105 mm[Hg] Univer sity [facility] Diastolic blood 2021-01-06 19:12:00 70 mm[Hg] [facility] 2021-01-06 19:12:00 82 /min [facility] Body temperature 2021-01-06 19:12:00 36.44 Darya [facility] Respiratory rate 2021-01-06 19:12:00 16 /min [facility] Body weight 2021-01-06 19:12:00 43.545 kg [facility] Systolic blood 2019-05-07 10:05:00 104 mm[Hg] [...] Date/Time Type Type Clinicians Facility Department ID 2021-12-30 Outpatient [facility] [id number] [place] 12:47:02 [id number] [facility] 2021-04-03 [place], [facility] [id number] [place] 13:20:22 [facility] 2021-03-24 Outpatient [place], [facility] [id number] [place] 14:40:53 [facility] 2021-03-17 Outpatient DO, [facility] [id number] [place] 11:05:58 [facility] 2021-02-03 Outpatient [place], [facility] [id number] [place] 11:27:03 [facility] 2021-01-21 Outpatient [place], [facility] [id number] [place] 08:52:58 [facility] 2021-01-15 Outpatient Brian VARGAS [facility] [id number] [facility] 10:22:15 JAMILA wisdom [facility] 2021-06-22 2021-06-22 Office Ernestina, UTP [id number] [place] 09:15:00 10:19:03 Visit Dea [facility] [id number] Health [id number] 2021-04-27 2021-04-27 Office Ernestina, UTP 6410 [id number] [place] 09:45:00 10:42:08 Visit Dea [place] [id number] Health [id number] 5 2021-04-06 2021-04-06 Office Ernestina, UTP 6410 [id number] [place] 09:30:00 11:12:46 Visit Dea PICKERING [id number] Health [id number] 2021-03-30 2021-03-30 Office EMMIE DO [id number] [place] 13:30:00 13:45:00 Visit NERIS SOW [id number] H [facility] MEDICAL [id number] [facility] [id number] 1 2021-03-26 2021-03-26 Office Ernestina, UTP 6410 [id number] [place] 08:30:00 09:07:52 Visit Dea P[place]ER[place] [id number] Health [id number] 2021-03-24 2021-03-24 Outpatient MARKOS [facility] 7500 [facility] 05:20:00 23:59:00 NERIS 2021-02-27 2021-02-27 Orders Janis Caballero UTP 6410 [id number] [place] 00:00:00 00:00:00 Only Janis Caballero [id number] Health [id number] 5 2021-01-30 2021-01-30 Office Ernestina, UTP 6410 [id number] 1 [id number] [place] 10:15:10 11:45:56 Visit Dea [place] [id number] Health [id number] 2021-01-26 2021-01-26 Office EMMIE Do [id number] [place] 12:40:56 14:11:32 Visit Neris SOW [id number] H [facility] [id number] [facility] [id number] 1 2021-01-19 2021-01-19 [facility] [id number] Univers 09:45:00 09:45:00 JAMILA wisdom [facility] 2021-01-09 2021-01-09 Prep For [facility] [id number] Univers 00:00:00 00:00:00 Surgery Jamila Jose [id number] [id number] [place] 188 [facility] 2021-01-06 2021-01-06 Office [facility] [id number] [facility] 13:28:17 15:48:00 Visit Jamila Ashley Rebeca [id number] [id number] [id number] [place] dical nal 419 [facility] 2021-01-06 2021-01-06 [facility]patient [facility] [id number] Univers 14:30:00 14:30:00 JAMILA wisdom [facility] 2020-12-30 2020-12-30 Hospital Radiology [facility] [id number] Univers 09:00:00 23:59:00 Encounter Rebeca [id number] [id number] [id number] [facility] [address] [place] 2020-12-30 2020-12-30 Outpatient R RADIOLOGY [facility] [id number] Univers 00:00:00 00:00:00 ity of [facility] 2020-12-30 2020-12-30 Orders Doctor LUCIE 1.2.840.114 [id number] Univers 00:00:00 00:00:00 Only Unassigned, MARK [id number] ity of [place] [facility] [id number] [place] [id number] [facility] 009 Branch 2020-12-19 2020-12-19 Hospital Radiology [facility] 1.2.840.114 [id number] Univers 11:21:36 23:59:00 Encounter Y HEALTH [id number] ity [id number] [id number] [facility] 800 Branch 2020-12-19 2020-12-19 Outpatient R RADIOLOGY [facility] [id number] Univers 00:00:00 00:00:00 ity [facility] 2020-07-21 2020-07-21 Outpatient [facility] [id number] [place] 01:34:00 01:34:00 0503 [facility] 2020-04-29 2020-04-29 Outpatient R ADUM, [facility] [id number] Univers 13:00:00 13:00:00 SHELBY artis [facility] 2020-04-22 2020-04-22 Outpatient R ADUM, [facility] [id number] Univers 11:00:00 11:00:00 SHELBY artis [facility] 2020-04-10 2020-04-10 Outpatient R ADUM, [facility] [id number] Univers 14:00:00 14:00:00 SHELBY foremanroberto [facility] 2019-12-28 2019-12-28 Outpatient R ADUM, [facility] [id number] Univers 09:00:00 09:00:00 SHELBY artis [facility] 2019-11-30 2019-11-30 Biochemical Development Engineer 2, Adc Lab [facility] 1.2.840.114 [id number] Univers 09:00:41 09:15:41 Visit AdShelby ruiz [id number] [id number] [id number] [place] 353 [facility] 2019-11-30 2019-11-30 [facility] 1.2.840.114 [id number] Univers 07:58:23 08:52:17 Visit Shelby Jose [id number] [id number] [id number] [facility] 134 [facility] 2019-11-30 2019-11-30 Outpatient R AD, [facility] [id number] Univers 08:30:00 08:30:00 SHELBY ity of [facility] 2019-11-30 2019-11-30 Orders Doctor LUCIE 1.2.840.114 [id number] Univers 00:00:00 00:00:00 Only Unassigned, MARK [id number] ity of [place] [facility] [id number] [place] [id number] [address] 2019-11-30 2019-11-30 Letter [facility] [id number] Univers 00:00:00 00:00:00 (Out) Shelby Jose [id number] [id number] [id number] [facility] 134 [facility] 2019-05-07 2019-05-07 Appointmen EMMIE MINAYA [facility] 63 [id number] [place] 10:00:00 10:00:00 michaela ROTHMAN M.D. lty - Ph Yesy Curry M.D. Results Test Description Test Time Test Comments Results Result Comments Source . [facility] GC/Chlamydia 2019-05-07 00:00:00 Test Item Value Reference Range Interpretation Comme nts Case (test code = Case) Click ImageLink button for report. N Specimen 1 (test code = Specimen 1) Click ImageLink button for repo rt. N [facility]
[2022-04-06] MEDS ORDERED: ONDANSETRON 4 MG/2 ML VIAL ONE ×2 (01:28→03:04)
[2022-04-06] MEDS ORDERED: NA CHLORIDE 0.9% 1,000 ML ONE (01:29)
[2022-04-06] MEDS ORDERED: FAMOTIDINE 20 MG/2 ML VIAL IV ONE (01:29)
[2022-04-06] MEDS ORDERED: DICYCLOMINE HCL 20 MG/2 ML AMP IM ONE (01:29)
[2022-04-06 02:04] LABS: Absolute Lymphocytes (CBC) 0.8 K/uL (0.7-4.9); Hematocrit 41.5 % (36.0-45.0); Lymphocytes % 4.4 % (15.3-44.8); MCV 86.3 fL (80-100)
[2022-04-06 02:27] LABS: Albumin 4.3 g/dL (3.4-5.0); Bilirubin Total 0.5 mg/dL (0.2-1.0); Potassium 3.7 mmol/L (3.5-5.1); Protein, Total 8.4 g/dL (6.4-8.2)
[2022-04-06] MEDS ORDERED: DIPHENHYDRAMINE 50 MG/ML VIAL ONE (02:52)
[2022-04-06] MEDS ORDERED: METHYLPREDNISOLONE 125 MG INJ ONE (02:52)
[2022-04-06 03:14] LABS: Blood Morphology Comment NOT SEEN (NOT SEEN); Platelet Estimate ADEQ
[2022-04-06 03:22] LABS: Urine Blood Negative (Negative); Urine Glucose Negative (Negative); Urine Protein Negative (Negative); Urine Specific Gravity 1.025 (1.005-1.030)
[2022-04-06 04:23] LABS: Urine Bacteria None Seen /HPF (<20); Urine Mucus 2+ /HPF (None Seen); Urine RBC <5 /HPF (None Seen)
[2022-04-06 04:25] LABS: Urine Specific Gravity/Preg 1.025 (1.005-1.030)
--- NOTE | 2022-04-06 04:45 | ER ---
Nurse's Notes [facility] Name: Surinder Bach Age: 21 yrs Sex: Female : 2000 Arrival Date: 04/06/2022 Time: 01:14 Bed 19 Private MD: Diagnosis: Nausea with vomiting, unspecified;Diarrhea, unspecified Presentation: 04/06 01:16 Chief complaint: Patient states: N/V/D SINCE 8P LAST NIGHT. JUST ARRIVED HOME FROM [address] YESTERDAY MORNING. VOMTING X7. Coronavirus screen: At this time, the client does not indicate any symptoms associated with coronavirus-19. Ebola Screen: No symptoms or risks identified at this time. Initial Sepsis Screen: Does the patient meet any 2 criteria? No. Patient's initial sepsis screen is negative. Does the patient have a suspected source of infection? No. Patient's initial sepsis screen is negative. Onset of symptoms was April 05, 2022. 01:16 Method Of Arrival: Ambulatory [facility] 01:16 Acuity: ANASTASIIA 3 [facility] 01:16 Risk Assessment: Do you want to hurt yourself or someone else? Patient reports no [facility] desire to harm self or others. Triage Assessment: 01:48 General: Appears in no apparent distress. uncomfortable, slender, Behavior is calm, jj7 cooperative, appropriate for age. Pain: Complains of pain in abdomen. GI: Reports lower abdominal pain, upper abdominal pain, diarrhea, nausea, vomiting. 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 - Social history:: Smoking status: Patient denies any tobacco usage or history of. Patient/guardian denies using alcohol, street drugs. Screenin:16 [facility] ED Fall Risk Assessment (Adult) History of falling in the last 3 months, [facility] including since admission No falls in past 3 months (0 pts) Confusion or Disorientation No (0 pts) Intoxicated or Sedated No (0 pts) Impaired Gait No (0 pts) Mobility Assist Device Used No (0 pt) Altered Elimination No (0 pt) Score/Fall Risk Level 0 - 2 = Low Risk. Abuse screen: Denies threats or abuse. Nutritional screening: No deficits noted. Tuberculosis screening: No symptoms or risk factors identified. Assessment: 01:16 Reassessment: SEE TRIAGE ASSESSMENT. GI: Abdomen is flat, non-distended. jj7 Vital Signs: 01:16 BP 112 / 80; Pulse 95; Resp 20; Temp 97.8; Pulse Ox 97% ; Weight 44.45 kg; Height 5 ft. jj7 2 in. (157.48 cm); Pain 7/10; 02:47 BP 104 / 71; Pulse 76; Resp 20; Pulse Ox 97% ; Pain 0/10; jj7 03:40 BP 112 / 75; Pulse 65; Resp 16; Pulse Ox 100% ; Pain 0/10; jj7 04:45 BP 106 / 75; Pulse 88; Resp 17; Pulse Ox 99% ; Pain 0/10; jj7 01:16 Body Mass Index 17.92 (44.45 kg, 157.48 cm) j7 ED Course: 01:14 Patient arrived in ED. ag3 01:16 No provider procedures requiring assistance completed. jj7 01:16 Arm band placed on right wrist. Patient placed in an exam room, on a stretcher. jj7 01:16 Patient has correct armband on for positive identification. Bed in low position. Call jj7 light in reach. Adult w/ patient. 01:18 Jayesh Ventura PA is PHCP. cp 01:18 Alessio Brennan MD is Attending Physician. cp 01:23 Azul Isaac RN is Primary Nurse. jj7 01:34 Inserted saline lock: 20 gauge in right antecubital area, using aseptic technique. ls5 Blood collected. 01:40 CMP Sent. jj7 01:40 CBC with Diff Sent. jj7 01:40 Lipase Sent. jj7 01:47 Triage completed. jj7 03:20 Urine Microscopic Only Sent. jj7 03:44 CT Abd/Pelvis - IV Contrast Only In Process Unspecified. EDMS 05:09 IV discontinued, intact, bleeding controlled, No redness/swelling at site. Pressure jj7 dressing applied. Administered Medications: 01:39 Drug: NS 0.9% 1000 ml Route: IV; Rate: 1 bolus; Site: right antecubital; jj7 02:42 Follow up: IV Status: Completed infusion jj7 01:39 Drug: Pepcid (famotidine) 20 mg Route: IVP; Site: right antecubital; jj7 01:45 Follow up: Response: No adverse reaction jj7 01:45 Follow up: Response: No adverse reaction jj7 01:40 Drug: Zofran (Ondansetron) 4 mg Route: IVP; Site: right antecubital; jj7 05:18 Follow up: Response: Nausea is decreased jj7 01:40 Drug: Dicyclomine 20 mg Route: IM; Site: right gluteus; jj7 03:00 Drug: Benadryl (diphenhydrAMINE) 25 mg Route: IVP; Site: right antecubital; jj7 03:44 Follow up: Response: No adverse reaction jj7 03:44 Follow up: Response: No adverse reaction jj7 03:00 Drug: SOLU-Medrol (methylPrednisoLONE) 60 mg Route: IVP; Site: right antecubital; jj7 03:44 Follow up: Response: No adverse reaction jj7 03:09 Drug: Zofran (Ondansetron) 4 mg Route: IVP; Site: right antecubital; jj7 03:30 Follow up: Response: Nausea is decreased jj7 05:00 CANCELLED (Duplicate Order): Zofran (Ondansetron) 4 mg IVP once; over 2 minutes jj7 05:06 Drug: Cipro (ciprofloxacin) 500 mg Route: PO; jj7 05:15 Follow up: Response: No adverse reaction jj7 05:06 Drug: Flagyl (metroNIDAZOLE) 500 mg Route: PO; jj7 05:16 Follow up: Response: No adverse reaction jj7 05:06 Drug: Phenergan (promethazine) 6.25 mg Route: IVP; Site: right antecubital; jj7 05:16 Follow up: Response: No adverse reaction jj7 Medication: 01:16 VIS not applicable for this client. jj7 Outcome: 04:44 Discharge ordered by MD. wynne 05:09 Discharged to home ambulatory, with family. jj7 05:09 Condition: improved 05:09 Discharge instructions given to patient, Instructed on discharge instructions, follow up and referral plans. medication usage, Demonstrated understanding of instructions, follow-up care, medications, Prescriptions given X 3. 05:23 Patient left the ED. jj7 Signatures: Dispatcher [employer] EDMS Alessio Brennan MD MD rn Jayesh Ventura PA PA cp Gomez, Alice ag3 Azul Isaac RN RN jj7 Tom Cabral5
--- NOTE | 2022-04-06 04:45 | EDPHYS ---
Physician Documentation [facility] Name: Surinder Bach Age: 21 yrs Sex: Female : 2000 Arrival Date: 04/06/2022 Time: 01:14 Bed 19 Private MD: ED Physician Alessio Brennan HPI: 04/06 01:25 This 21 yrs old Female presents to ER via Ambulatory with complaints of cp Nausea, Diarrhea. 01:25 The patient presents to the emergency department with nausea, with "dry heaves", cp vomiting, that is continuous, diarrhea, that is intermittent. Onset: The symptoms/episode began/occurred last night. Possible causes: travel. Associated signs and symptoms: Pertinent negatives: abdominal pain, dysuria, fever, GI bleeding. Severity of symptoms: in the emergency department the symptoms are unchanged despite home interventions. [employer]: 01:48 LMP 02/22/2022 jj7 Historical: - Allergies: 01:48 No Known Allergies; jj7 - PMHx: 01:48 Anxiety; jj7 - PSHx: 01:48 Lumpectomy of breast; jj7 - Immunization history:: Adult Immunizations up to date. - Social history:: Smoking status: Patient denies any tobacco usage or history of. Patient/guardian denies using alcohol, street drugs. ROS: 01:30 Constitutional: Positive for poor PO intake, Negative for body aches, chills, fever. cp 01:30 Eyes: Negative for injury, pain, redness, and discharge. cp 01:30 ENT: Negative for drainage from ear(s), ear pain, sore throat, difficulty swallowing, difficulty handling secretions. 01:30 Cardiovascular: Negative for chest pain. 01:30 Respiratory: Negative for cough, shortness of breath, wheezing. 01:30 Abdomen/GI: Positive for nausea and vomiting, diarrhea, anorexia, Negative for abdominal pain, constipation, hematemesis, rectal bleeding. 01:30 : Negative for urinary symptoms. 01:30 Neuro: Negative for altered mental status, headache, syncope, weakness. 01:30 All other systems are negative. Exam: 01:33 Constitutional: The patient appears in no acute distress, alert, awake, non-toxic, well cp developed, well nourished. 01:33 Head/Face: Normocephalic, atraumatic. cp 01:33 Eyes: Periorbital structures: appear normal, Conjunctiva: normal, no exudate, no injection, Sclera: no appreciated abnormality, Lids and lashes: appear normal, bilaterally. 01:33 ENT: External ear(s): are unremarkable, Nose: is normal, Mouth: Lips: moist, Oral mucosa: pink and intact, moist, Posterior pharynx: Airway: no evidence of obstruction, patent. 01:33 Chest/axilla: Inspection: normal. 01:33 Cardiovascular: Rate: normal, Rhythm: regular. 01:33 Respiratory: the patient does not display signs of respiratory distress, Respirations: normal, no use of accessory muscles, no retractions, labored breathing, is not present, Breath sounds: are clear throughout, no decreased breath sounds, no stridor, no wheezing. 01:33 Abdomen/GI: Inspection: abdomen appears normal, Bowel sounds: active, all quadrants, Palpation: abdomen is soft and non-tender, in all quadrants. 01:33 Back: pain, is absent, ROM is normal. 01:33 Neuro: Orientation: to person, place \\T\\ time. Mentation: is normal. Vital Signs: 01:16 BP 112 / 80; Pulse 95; Resp 20; Temp 97.8; Pulse Ox 97% ; Weight 44.45 kg; Height 5 ft. jj7 2 in. (157.48 cm); Pain 7/10; 02:47 BP 104 / 71; Pulse 76; Resp 20; Pulse Ox 97% ; Pain 0/10; jj7 03:40 BP 112 / 75; Pulse 65; Resp 16; Pulse Ox 100% ; Pain 0/10; jj7 04:45 BP 106 / 75; Pulse 88; Resp 17; Pulse Ox 99% ; Pain 0/10; jj7 01:16 Body Mass Index 17.92 (44.45 kg, 157.48 cm) jj7 MDM: 01:18 Patient medically screened. cp 04:43 Differential diagnosis: Nonspecific abd pain, gastritis, pancreatitis, appendicitis, rn diverticulitis, viral gastroenteritis, gastroenteritis. Data reviewed: vital signs, nurses notes, lab test result(s), radiologic studies, CT scan, and as a result, I will discharge patient. Counseling: I had a detailed discussion with the patient and/or guardian regarding: the historical points, exam findings, and any diagnostic results supporting the discharge/admit diagnosis, lab results, radiology results, the need for outpatient follow up, to return to the emergency department if symptoms worsen or persist or if there are any questions or concerns that arise at home. Response to treatment: the patient's symptoms have markedly improved after treatment, and as a result, I will discharge patient. Special discussion: Based on the patient's Hx, exam, and Dx evaluation, there is no indication for emergent surgery or inpatient Tx. It is understood by the patient/guardian that if the Sx's persist or worsen they need to return immediately for re-evaluation. I discussed with the patient/guardian in detail that at this point there is no indication for admission to the hospital. It is understood, however, that if the symptoms persist or worsen the patient needs to return immediately for re-evaluation. ED course: Pt improved, feels much better. CT abd/pelvis neg for acute process, appendix normal. Elevated WBC with bandemia, will cover with abx given recent travel and elevated WBC and bandemia. Will dc home with abx and prn zofran. . 04/06 01:21 Order name: CBC with Diff; Complete Time: 04:36 cp 04/06 02:31 Interpretation: Normal except: WBC 17.60; RDW 15.3; STEPHON% 91.1; LYM% 4.4; NEUT A 16.0. cp 04/06 01:21 Order name: CMP; Complete Time: 02:31 cp 04/06 02:32 Interpretation: GLUC 111; A/G 1.0; GLOB 4.1; TP 8.4. cp 04/06 01:21 Order name: Lipase; Complete Time: 02:31 cp 04/06 01:21 Order name: Urine Microscopic Only; Complete Time: 04:36 cp 04/06 02:11 Order name: Manual Differential; Complete Time: 04:36 EDMS 04/06 02:36 Order name: CT Abd/Pelvis - IV Contrast Only cp 04/06 03:20 Order name: Urine --Ancillary (enter results); Complete Time: 04:36 bb 04/06 03:22 Order name: Urine Dipstick-Ancillary; Complete Time: 04:36 EDMS 04/06 01:21 Order name: IV Saline Lock; Complete Time: 01:33 cp 04/06 01:21 Order name: Labs collected and sent; Complete Time: 01:34 cp 04/06 01:21 Order name: Urine Dipstick-Ancillary (obtain specimen); Complete Time: 03:20 cp 04/06 01:21 Order name: Urine Test (obtain specimen); Complete Time: 03:20 cp Administered Medications: 01:39 Drug: NS 0.9% 1000 ml Route: IV; Rate: 1 bolus; Site: right antecubital; jj7 02:42 Follow up: IV Status: Completed infusion jj7 01:39 Drug: Pepcid (famotidine) 20 mg Route: IVP; Site: right antecubital; jj7 01:45 Follow up: Response: No adverse reaction j7 01:45 Follow up: Response: No adverse reaction jj7 01:40 Drug: Zofran (Ondansetron) 4 mg Route: IVP; Site: right antecubital; jj7 05:18 Follow up: Response: Nausea is decreased jj7 01:40 Drug: Dicyclomine 20 mg Route: IM; Site: right gluteus; jj7 03:00 Drug: Benadryl (diphenhydrAMINE) 25 mg Route: IVP; Site: right antecubital; jj7 03:44 Follow up: Response: No adverse reaction jj7 03:44 Follow up: Response: No adverse reaction jj7 03:00 Drug: SOLU-Medrol (methylPrednisoLONE) 60 mg Route: IVP; Site: right antecubital; jj7 03:44 Follow up: Response: No adverse reaction jj7 03:09 Drug: Zofran (Ondansetron) 4 mg Route: IVP; Site: right antecubital; jj7 03:30 Follow up: Response: Nausea is decreased jj7 05:00 CANCELLED (Duplicate Order): Zofran (Ondansetron) 4 mg IVP once; over 2 minutes jj7 05:06 Drug: Cipro (ciprofloxacin) 500 mg Route: PO; jj7 05:15 Follow up: Response: No adverse reaction jj7 05:06 Drug: Flagyl (metroNIDAZOLE) 500 mg Route: PO; jj7 05:16 Follow up: Response: No adverse reaction jj7 05:06 Drug: Phenergan (promethazine) 6.25 mg Route: IVP; Site: right antecubital; jj7 05:16 Follow up: Response: No adverse reaction jj7 Disposition: 07:00 Co-signature as Attending Physician, Alessio Brennan MD. rn Disposition Summary: 04/06/22 04:44 Discharge Ordered Location: Home rn Problem: new rn Symptoms: have improved rn Condition: Stable rn Diagnosis - Nausea with vomiting, unspecified rn - Diarrhea, unspecified rn Followup: cp - With: Private Physician - When: 1 - 2 days - Reason: Worsening of condition Discharge Instructions: - Discharge Summary Sheet cp - Diarrhea, Adult cp - Nausea and Vomiting, Adult cp Forms: - Medication Reconciliation Form rn - Thank You Letter rn - Antibiotic video intern - Prescription Opioid Use rn Prescriptions: - Flagyl 500 mg Oral Tablet - take 1 tablet by ORAL route every 12 hours for 10 days; 20 tablet; Refills: 0, rn Product Selection Permitted - Cipro 500 mg Oral Tablet - take 1 tablet by ORAL route every 12 hours for 10 days; 20 tablet; Refills: 0, rn Product Selection Permitted - ondansetron 4 mg Oral - take 4 milligrams by SUBLINGUAL route every 8 hours; 15 tablet; Refills: 0, rn Product Selection Permitted Signatures: Dispatcher [employer] EDAlessio Bhatti MD MD rn Page, Corey, PA PA cp Johnson, Juwairiyah, RN RN jj7 Corrections: (The following items were deleted from the chart) 02:31 02:31 Normal except: WBC 17.60. cp cp 02:32 02:31 GLUC 111. cp cp 05:00 04:43 Zofran (Ondansetron) 4 mg IVP once; over 2 minutes ordered. rn jj7
[2022-04-06] MEDS ORDERED: CIPROFLOXACIN HCL 500 MG TAB ONE (05:06)
[2022-04-06] MEDS ORDERED: metroNIDAZOLE 500 MG TABLET ONE (05:06)
[2022-04-06] MEDS ORDERED: PROMETHAZINE INJ 25 MG/ML AMP ONE (05:06)
[2022-04-06 06:26] VITALS: TEMP 97.8
[2022-04-06 06:30] VITALS: BP 106/75; O2SAT 99
--- NOTE | 2022-04-06 15:02 | RAD REPORT ---
EXAM DESCRIPTION: CT - Abdomen Pelvis W Contrast - 04/06/2022 6:57 am CLINICAL HISTORY: 21 years, Female, N/V/D COMPARISON: 08/29/2021 TECHNIQUE: Contrast-enhanced images of the abdomen and pelvis were performed utilizing 5 mm slice th ickness at 5 mm interval reconstruction from the lung bases to the ischial tuberosities after the adm inistration of IV contrast. In addition multiplanar reformats in the coronal and sagittal plane were obtained and reviewed. This exam was performed according to our departmental dose-optimization protocol, which includes auto mated exposure control, adjustment of the mA and/or kV according to patient size and/or use of iterat cory reconstruction technique. FINDINGS: The lung bases demonstrate to be clear. The liver, gallbladder, pancreas, spleen and adrenal glands demonstrate to be unremarkable, no focal lesions are noted. The kidneys demonstrate normal uptake of contrast media. No evidence for nephrolithiasis and/or hydro nephrosis. Grossly the unopacified stomach, small bowel and large bowel demonstrate to be within normal limits. There is no evidence for bowel dilatation/or free air. The appendix is normal. The urinary bladder was partially distended with diffuse circumferential wall thickening. The uteru s demonstrate to be within normal limits. 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 There is minimal trace of free fluid posterior cul-de-sac most likely physiologic in nature. The aorta de monstrate to be normal. There is no retroperitoneal lymphadenopathy. There is no evidence for ascit es/or significant abnormal fluid collections. The rest of the soft tissue and bony structures are wit hin normal limits. IMPRESSION: 1.5 cm corpus luteum cyst left adnexa. Minimal trace of free fluid posterior cul-de-sac most likely physiologic in nature. Diffuse circumferential wall thickening of the urinary bladder, correlate with urinalysis to exclude the possibility of cystitis. Electronically signed by: Jacky Murcia MD 04/06/2022 4:01 AM TECHNICAL DOCUMENT WRITER Due to temporary technical issues with the PACS/Fluency reporting system, reports are being signed by the in house radiologists without review as a courtesy to insure prompt reporting. The interpreting radiologist is fully responsible for the content of the report.
== END 2022-04-06 05:23 | disposition home or self-care (01) ==
LOC: ER 01:10
DX: R11.2 Nausea with vomiting, unspecified (principal); R19.7 Diarrhea, unspecified
CPT/HCPCS: 85025; 36415; 81025; 83690; 80053; 74177; Q9967; J2550; J0500; J1200; J7030; J2930; J2405 ×2; 81003; 81015

== ENCOUNTER 2022-05-12 08:51 | Emergency (ER) | payer OTHER ==
--- OUTSIDE RECORDS SUMMARY | 2022-05-12 08:54 | XMS REPORT | Continuity of Care Document ---
:2000 Author Organization [facility] t Address [facility] [address] [place] [address] Care Team Providers Name Role Phone Unknown, Physician Primary Care Physician Unavailable DEA WASSERMAN Attending Clinician Unavailable NERIS DO Attending Clinician Unavailable JAMILA VARGAS Attending Clinician Unavailable NERIS DO Attending Clinician Unavailable Janis Caballero MA Attending Clinician Unavailable Jamila Vargas MD Attending Clinician Radiology Attending Clinician Unavailable RADIOLOGY Attending Clinician Unavailable Doctor Unassigned, [place] Attending Clinician Unavailable PEREZ Attending Clinician Unavailable SHELBY SALDANA Attending Clinician Unavailable 2, [facility] Attending Clinician Unavailable Shelby Saldana MD Attending Clinician STEPHAN MINAYA M.D. Attending Clinician Unavailable JAMILA VARGAS Admitting Clinician Unavailable PEREZ Admitting Clinician Unavailable Payers Payer Name Policy Type Policy Number Effective Date Expiration Date Gabi vega [facility] MEDICAID STAR [id number] 2020 00:00:00 [facility] [id number] [address] [facility] MEDICAID 00:00:00 [facility] [id number] 2020 [facility] 00:00:[address] (O) Problems Condition Condition Condition Status Onset Resolution Last Treating Co mments Source Name Details Category Date Date Treatment Clinician Date Breast Breast Disease Active 2020-03 [place] asymmetry asymmetry 04-10 [facility] 00:[facility]: 00 Breast Breast Disease Active 2020-03 Overview: [place] mass, left mass, left 03-28 [facility] 00:00: g of this 00 [...] rs active active ity of problems problems [facility] Contracept Contracept Problem Active U T cory cory Physici education education ans BV BV Problem Active UT (bacterial (bacterial Ph ysici vaginosis) vaginosis) an s Allergies, Adverse Reactions, Alerts Allergy Allergy Status Severity Reaction(s) Onset Inactive Treating Comm ents Source Name Type Date Date Clinician NO KNOWN Drug Active Univers ALLERGIE Class ity of S [facility] Social History Social Habit Start Date Stop Date Quantity Comments Source History [facility] o f Alcohol Comment [facility] ical Branch Exposure to Not sure [facility] SARS-CoV-2 (event) Alcohol intake 2021-06-22 2021-06-22 Lifetime [facility] 00:00:00 00:00:00 non-drinker (finding) Tobacco use and 2021-01-26 2021-01-26 Smokeless tobacco [facility] exposure 00:00:00 00:00:00 non-user History [facility] 2019-11-30 2019-11-30 1 University o f Alcohol Frequency 00:00:00 00:00:00 [place] [facility] History [facility] 2019-11-30 2019-11-30 99 University o f Alcohol Std 00:00:00 00:00:00 [place] [facility] History [facility] 2019-11-30 2019-11-30 1 University o f Alcohol Binge 00:00:00 00:00:00 [place] [facility] Sex Assigned At [birth year] [facility] 00:00:00 00:00:00 Smoking Status Start Date Stop Date Source Never smoked tobacco [facility] Medications Ordered Filled Start Stop Current Ordering [...] every 3 (three) months. promethazin 2021- No [id number] 12.5mg Take 1 UT e 04-03 [id number] tablet Health (Phenergan) 00:00: 05:59 (12.5 mg 12.5 MG 00 :00 total) by tablet mouth every 8 (eight) hours if needed for nausea or vomiting for up to 5 days. naproxen 2021- No [id number] 500mg Take 1 UT (Naprosyn) 04-02 tablet Health 500 MG 00:00: 05:59 (500 mg tablet 00 :00 total) by mouth 2 (two) times a day with meals. naproxen 2021- No [id number] 500mg Take 1 UT (Naprosyn) 04-02 tablet Health 500 MG 00:00: 05:59 (500 mg tablet 00 :00 total) by mouth 2 (two) times a day with meals. promethazin 2021- No [id number] 12.5mg Q6H Insert 0.5 UT e 04-02 suppositor Health (Phenergan) 00:00: 05:59 ies (12.5 25 MG 00 :00 mg total) suppository into the rectum every 6 (six) hours if needed for nausea for up to 5 days. promethazin 2021- No [id number] 12.5mg Q6H Insert 0.5 UT e 04-02 [...] every 3 (three) months. acetaminoph 2021- No [id number] 1{tbl} Q6H Take 1 UT en-codeine 1-05 01-11 tablet by [facility] (Tylenol w/ 00:00: 05:59 mouth Codeine #3) 00 :00 every 6 300-30 MG (six) tablet hours if needed for severe pain for up to 5 days. acetaminoph 2021-2021- No [id number] 1{tbl} Q6H Take 1 UT en-codeine 1-05 01-11 tablet by [facility] (Tylenol w/ 00:00: 05:59 mouth Codeine [...] No Univers medications 0-19 ity of 14:14: [address] No known 2020-03 No Univers medications 0-19 ity of 14:14: [address] No known 2021-1 No Univers medications 0-19 ity of 14:14: [address] Branch Clindesse 2 Clindesse 2 2020-0 [...] Oxygen saturation in 2021-03-30 19:47:00 98 /min [facility] Arterial blood by Pulse oximetry Systolic blood [...] Oxygen saturation in 2021-01-26 19:31:00 99 /min [facility] Arterial blood by Pulse oximetry Systolic blood 2021-01-06 19:12:00 105 mm[Hg] Univer sity [facility] Diastolic blood 2021-01-06 19:12:00 70 mm[Hg] [facility] 2021-01-06 19:12:00 82 /min [facility] Body temperature 2021-01-06 19:12:00 36.44 Darya [facility] Respiratory rate 2021-01-06 19:12:00 16 /min [facility] Body weight 2021-01-06 19:12:00 43.545 kg [facility] Systolic blood 2019-05-07 10:05:00 104 mm[Hg] [...] Type Clinicians Facility Department ID 2021-12-30 Outpatient [facility] [id number] [place] 12:47:02 [id number] [facility] 2021-04-03 Outpatient [place], [facility] [id number] [place] 13:20:22 [facility] 2021-03-24 Outpatient [place], [facility] [id number] [place] 14:40:53 [facility] 2021-03-17 Outpatient DO, [facility] [id number] [place] 11:05:58 [facility] 2021-02-03 Outpatient [place], [facility] [id number] [place] 11:27:03 [facility] 2021-01-21 Outpatient [place], [facility] [id number] [place] 08:52:58 [facility] 2021-01-15 Outpatient Brian VARGAS [facility] T[facility]VI [id number] [facility] 10:22:15 JAMILA wisdom [facility] 2021-06-22 2021-06-22 Office [place], UTP [id number] [place] 09:15:00 10:19:03 Visit Dea P[facility]ERING [id number] Health [id number] 2021-04-27 2021-04-27 Office [place], [facility] 6410 [id number] [place] 09:45:00 10:42:08 Visit Dea PICKERING [id number] Health [id number] 5 2021-04-06 2021-04-06 Office [place], [facility] 6410 [id number] MS 09:30:00 11:12:46 Visit Dea PICKERING [id number] Health [id number] 2021-03-30 2021-03-30 Office EMMIE DO [id number] MS 13:30:00 13:45:00 Visit NERIS SOW [id number] [facility] MEDICAL [id number] [facility] [id number] 1 2021-03-26 2021-03-26 Office [place], [facility]TP 6410 [id number] MS 08:30:00 09:07:52 Visit Dea PICKERING [id number] Health [id number] 2021-03-24 2021-03-24 Outpatient [facility] 05:20:00 23:59:00 NERIS 2021-02-27 2021-02-27 Orders Janis Caballero [facility] 6410 [id number] MS 00:00:00 00:00:00 Only Janis Caballero [id number] Health [id number] 5 2021-01-30 2021-01-30 Office [place], [facility] 6410 1.2.840.114 [id number] MS 10:15:10 11:45:56 Visit Dea PICKERING [id number] Health [id number] 5 2021-01-26 2021-01-26 Office EMMIE Do [id number] MS 12:40:56 14:11:32 Visit Neris SOW [id number] H [facility] [id number] [facility] [id number] 1 2021-01-19 2021-01-19 [facility] [id number] Univers 09:45:00 09:45:00 JAMILA wisdom [facility] 2021-01-09 2021-01-09 Prep For [facility] 1.2.840.114 [id number] Univers 00:00:00 00:00:00 Surgery Jamila Jose [id number] [id number] [phone] [place] dical nal 188 [facility] 2021-01-06 2021-01-06 Office [facility] [id number] [facility] 13:28:17 15:48:00 Visit Jamila Ashley Rebeca [id number] [id number] [phone] Me dical nal 419 [facility] 2021-01-06 2021-01-06 [facility] [id number] Univers 14:30:00 14:30:00 JAMILA wisdom [facility] 2020-12-30 2020-12-30 Hospital Radiology [facility] [id number] Univers 09:00:00 23:59:00 Encounter Rebeca [id number] [id number] [facility] [id number] [facility] [address] [place] 2020-12-30 2020-12-30 Outpatient R RADIOLOGY [facility] [id number] Univers 00:00:00 00:00:00 ity of [facility] 2020-12-30 2020-12-30 Orders Doctor LUCIE 1.2.840.114 [id number] Univers 00:00:00 00:00:00 Only Unassigned, MARK [id number] ity of [place] [facility] [id number] [place] as [id number] [facility] [address] 2020-12-19 2020-12-19 Hospital Radiology [facility] 1.2.840.114 [id number] Univers 11:21:36 23:59:00 Encounter Y HEALTH [id number] ity of [id number] [id number] [facility] [address] 2020-12-19 2020-12-19 Outpatient R RADIOLOGY [facility] [id number] Univers 00:00:00 00:00:00 ity [facility] 2020-07-21 2020-07-21 Outpatient WATERS_S [facility] [id number] [place] 01:34:00 01:34:00 0503 [facility] 2020-04-29 2020-04-29 Outpatient R ADUM, [facility] [id number] Univers 13:00:00 13:00:00 SHELBY artis [facility] 2020-04-22 2020-04-22 Outpatient R ADUM, [facility] [id number] Univers 11:00:00 11:00:00 SHELBY artis [facility] 2020-04-10 2020-04-10 Outpatient R ADUM, [facility] [id number] Univers 14:00:00 14:00:00 SHELBY foremanroberto [facility] 2019-12-28 2019-12-28 Outpatient R ADUM, [facility] [id number] Univers 09:00:00 09:00:00 SHELBY artis [facility] 2019-11-30 2019-11-30 Customer Data Technician 2, Adc Lab [facility] 1.2.840.114 [id number] Univers 09:00:41 09:15:41 Visit AdShelby ruiz [id number] [id number] [id number] [place] dical nal 353 [facility] 2019-11-30 2019-11-30 Office [facility] 1.2.840.114 [id number] Univers 07:58:23 08:52:17 Visit Shelby Jose [id number] [id number] [id number] [facility] 134 [facility] 2019-11-30 2019-11-30 Outpatient R AD, [facility] [id number] Univers 08:30:00 08:30:00 SHELBY ity of [facility] 2019-11-30 2019-11-30 Orders Doctor LUCIE 1.2.840.114 [id number] Univers 00:00:00 00:00:00 Only Unassigned, MARK [id number] ity of [place] [facility] [id number] [place] as [id number] [address] 2019-11-30 2019-11-30 Letter [facility] 1.2.840.114 [id number] Univers 00:00:00 00:00:00 (Out) Shelby Jose [id number] [id number] [phone] [facility] 134 [facility] 2019-05-07 2019-05-07 Appointmen EMMIE MINAYA [facility] [id number] [place] 10:00:00 10:00:00 michaela ROTHMAN M.D. lty - [...]
[2022-05-12] MEDS ORDERED: NA CHLORIDE 0.9% 1,000 ML ONE (09:23)
[2022-05-12 09:36] LABS: Absolute Lymphocytes (CBC) 1.4 K/uL (0.7-4.9); Hematocrit 42.4 % (36.0-45.0); Lymphocytes % 6.6 % (15.3-44.8); MCV 88.1 fL (80-100); MPV 8.7 fL (7.6-11.3); RBC Red Blood Cell Count 4.81 M/uL (3.86-4.86)
[2022-05-12 09:37] LABS: Urine Blood Negative (Negative); Urine Glucose Negative (Negative); Urine Protein Trace (Negative); Urine Specific Gravity 1.015 (1.005-1.030); Urine pH 7.5 (5.0-7.0)
[2022-05-12] MEDS ORDERED: PROMETHAZINE INJ 25 MG/ML AMP ONE (09:48)
[2022-05-12] MEDS ORDERED: NA CHLORIDE 0.9% 50 ML ONE (09:49)
[2022-05-12 09:53] LABS: Potassium 3.6 mmol/L (3.5-5.1)
--- NOTE | 2022-05-12 10:37 | RAD REPORT ---
EXAM DESCRIPTION: US - Transvaginal Study Probe - 05/12/2022 10:19 am CLINICAL HISTORY: ABD PAIN Pelvic pain. COMPARISON: No comparisons FINDINGS: The uterus is normal in size, shape and echotexture. The uterus measures 7.5 x 3.4 x 4.5 c m with volume of 60.8 cc The endometrial stripe measures 9 mm, within normal limits. Both ovaries are normal in size, shape and echotexture. The right ovary measures 3.4 x 2.2 x 3 cm wi th volume of 11.6 cc. The left ovary measures 2.6 x 1.7 x 1.6 cm with volume of 3.8 cc. No ovarian o r parovarian lesions. No adnexal masses. Normal Doppler blood flow was demonstrated to both ovaries. Trace pelvic free fluid. IMPRESSION: Bilateral ovarian blood flow. No acute findings identified.
[2022-05-12] MEDS ORDERED: KETOROLAC 30 MG/ML INJ ONE (10:59)
[2022-05-12 11:01] LABS: Urine Bacteria None Seen /HPF (<20); Urine Mucus Slight /HPF (None Seen); Urine RBC <5 /HPF (None Seen); Urine WBC Clump Rare /HPF (None Seen)
[2022-05-12 11:10] LABS: Barbiturates NEGATIVE (NEGATIVE); Benzodiazepines NEGATIVE (NEGATIVE); Cocaine NEGATIVE (NEGATIVE); METHAMPHETAM NEGATIVE (NEGATIVE); Methadone NEGATIVE (NEGATIVE); Opiates NEGATIVE (NEGATIVE); Phencyclidine NEGATIVE (NEGATIVE); THC Cannibis POSITIVE (NEGATIVE)
--- NOTE | 2022-05-12 11:34 | ER ---
Nurse's Notes [facility] Name: Surinder Bach Age: 21 yrs Sex: Female : 2000 Arrival Date: 05/12/2022 Time: 08:53 Bed 6 Private MD: Diagnosis: Cyclical vomiting, not intractable Presentation: 05/12 09:03 Chief complaint: Patient states: nausea that began last night. woke up this morning kc6 with right and left lower quadrant pain, vomiting, and diarrhea. stated she was here a month ago for the same thing. Coronavirus screen: Vaccine status: Patient reports being unvaccinated. At this time, the client does not indicate any symptoms associated with coronavirus-19. Ebola Screen: No symptoms or risks identified at this time. Initial Sepsis Screen: Does the patient meet any 2 criteria? No. Patient's initial sepsis screen is negative. Does the patient have a suspected source of infection? No. Patient's initial sepsis screen is negative. Risk Assessment: Do you want to hurt yourself or someone else? Patient reports no desire to harm self or others. Onset of symptoms was May 11, 2022. 09:03 Method Of Arrival: Ambulatory kc6 09:03 Acuity: ANASTASIIA 3 kc6 Triage Assessment: 09:05 General: Appears in no apparent distress. uncomfortable, Behavior is calm, cooperative, kc6 appropriate for age. Pain: Complains of pain in right lower quadrant and left lower quadrant Pain does not radiate. Pain currently is 8 out of 10 on a pain scale. Pain began 1 day ago. Is continuous, Alleviated by nothing. Aggravated by eating, drinking, Noted to be guarding, Also complains of no other associated symptoms. EENT: No signs and/or symptoms were reported regarding the EENT system. Neuro: [place] Agitation-Sedation Scale (RASS): 0 - Alert and Calm Level of Consciousness is awake, alert, obeys commands, Oriented to person, place, time, situation, Appropriate for age. Cardiovascular: Capillary refill < 3 seconds. Respiratory: Airway is patent Trachea midline Respiratory effort is even, unlabored, Respiratory pattern is regular, symmetrical. GI: Abdomen is flat, non-distended, Bowel sounds present X 4 quads. Abd is soft X 4 quads Abdomen is tender to palpation in right lower quadrant and left lower quadrant Reports diarrhea, nausea, vomiting. : No signs and/or symptoms were reported regarding the genitourinary system. Derm: No signs and/or symptoms reported regarding the dermatologic system. Skin is intact, Skin is pink, warm \T\ dry. Musculoskeletal: No signs and/or symptoms reported regarding the musculoskeletal system. Circulation, motion, and sensation intact. Capillary refill < 3 seconds, Range of motion: intact in all extremities. 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 Flu vaccine is not up to date. - Social history:: Smoking status: Patient denies any tobacco usage or history of. Screenin:07 [facility] ED Fall Risk Assessment (Adult) History of falling in the last 3 months, kc6 including since admission No falls in past 3 months (0 pts) Confusion or Disorientation No (0 pts) Intoxicated or Sedated No (0 pts) Impaired Gait No (0 pts) Mobility Assist Device Used No (0 pt) Altered Elimination No (0 pt) Score/Fall Risk Level 0 - 2 = Low Risk Oriented to surroundings, Maintained a safe environment, Educated pt \T\ family on fall prevention, incl call for assistance when getting out of bed, Assessed \T\ reinforced patient's understanding of fall precautions, Hourly rounding (assess needs \T\ fall precautionary measures) done. Abuse screen: Denies threats or abuse. Denies injuries from another. Nutritional screening: No deficits noted. Tuberculosis screening: No symptoms or risk factors identified. Assessment: 09:03 Reassessment: please see triage assessment. GI: Abdomen is flat, non-distended, Bowel kc6 sounds present X 4 quads. Abd is soft X 4 quads Abdomen is tender to palpation in right lower quadrant and left lower quadrant Reports diarrhea, nausea, vomiting. 10:03 Reassessment: Patient appears in no apparent distress at this time. No changes from kc6 previously documented assessment. Patient and/or family updated on plan of care and expected duration. Pain level reassessed. Patient is alert, oriented x 3, equal unlabored respirations, skin warm/dry/pink. 11:03 Reassessment: Patient appears in no apparent distress at this time. No changes from kc6 previously documented assessment. Patient and/or family updated on plan of care and expected duration. Pain level reassessed. Patient is alert, oriented x 3, equal unlabored respirations, skin warm/dry/pink. Vital Signs: 09:03 BP 125 / 82; Pulse 57; Resp 18 S; Temp 98.8(TE); Pulse Ox 100% on R/A; Weight 43.54 kg kc6 (R); Height 5 ft. 2 in. (157.48 cm) (R); Pain 8/10; 10:05 BP 120 / 83; Pulse 73; Resp 17 S; Pulse Ox 100% on R/A; kc6 11:05 BP 116 / 88; Pulse 86; Resp 22 S; Pulse Ox 100% on R/A; kc6 09:03 Body Mass Index 17.56 (43.54 kg, 157.48 cm) 6 ED Course: 08:53 Patient arrived in ED. as 08:53 Maria Ines [facility]sorio [facility]C [facility] sn[facility] 08:53 Jayesh Roy MD is Attending Physician. snw 09:03 Vickie May, TIMO is Primary Nurse. kc6 09:05 Triage completed. kc6 09:05 Arm band placed on. kc6 09:08 Patient has correct armband on for positive identification. Bed in low position. [facility] light in reach. Side rails up X 1. 09:48 Inserted saline lock: 20 gauge in right antecubital area, using aseptic technique. kc6 Blood collected. 10:53 UDS Sent. kc6 10:53 Urine Microscopic Only Sent. kc6 12:06 No provider procedures requiring assistance completed. IV discontinued, intact, jl7 bleeding controlled, No redness/swelling at site. Pressure dressing applied. Administered Medications: 09:42 Drug: NS 0.9% (30 ml/kg) 30 ml/kg Route: IV; Rate: bolus; Site: right antecubital; kc6 19:28 Follow up: Response: No adverse reaction; IV Status: Completed infusion; IV Intake: kc6 1050ml 09:48 Drug: Phenergan (promethazine) 6.25 mg Route: IVP; Site: right antecubital; kc6 10:48 Follow up: Response: No adverse reaction; Nausea unchanged kc6 10:57 Drug: TORadol - (ketorolac) 15 mg Route: IVP; Site: right antecubital; kc6 12:06 Follow up: Response: No adverse reaction; Pain is decreased jl7 12:05 Drug: Dicyclomine 20 mg Route: PO; jl7 12:05 Follow up: Response: Medication administered at discharge. jl7 Medication: 12:07 VIS not applicable for this client. jl7 Intake: 19:28 IV: 1050ml; Total: 1050ml. kc6 Outcome: 11:33 Discharge ordered by MD. cabezas 12:06 Discharged to home ambulatory. jl7 12:06 Condition: stable 12:06 Discharge instructions given to patient, Instructed on discharge instructions, follow up and referral plans. medication usage, Demonstrated understanding of instructions, follow-up care, medications, Prescriptions given X 2. 12:07 Patient left the ED. jl7 Signatures: Maria Ines Osoiro, MEDICAL CODER-C MEDICAL CODER-Vicenta Reyes Jahala, RN RN jl7 Vickie May RN RN kc6
--- NOTE | 2022-05-12 11:34 | EDPHYS ---
Physician Documentation [facility] Name: Surinder Bach Age: 21 yrs Sex: Female : 2000 Arrival Date: 05/12/2022 Time: 08:53 Bed 6 Private MD: KATHLEEN Physician Jayesh Roy HPI: 05/12 09:18 This 21 yrs old Female presents to ER via Ambulatory with complaints of snw Nausea/Vomiting/Diarrhea, Abdominal Pain. 09:18 The patient presents to the emergency department with nausea, vomiting, abdominal pain, snw of the abdomen diffusely. Onset: The symptoms/episode began/occurred suddenly, 2 day(s) ago, and became persistent. Possible causes: bad food exposure, pt seems to have similar s/s frequently, LMP due 2 days ago. The symptoms are aggravated by nothing. The symptoms are alleviated by nothing. Severity of symptoms: At their worst the symptoms were moderate in the emergency department the symptoms are unchanged. The patient has experienced similar episodes in the past, several times. The patient has not recently seen a physician. 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 Flu vaccine is not up to date. - Social history:: Smoking status: Patient denies any tobacco usage or history of. ROS: 09:18 Constitutional: Negative for fever, chills, and weight loss, Eyes: Negative for injury, snw pain, redness, and discharge, ENT: Negative for injury, pain, and discharge, Neck: Negative for injury, pain, and swelling, Cardiovascular: Negative for chest pain, palpitations, and edema, Respiratory: Negative for shortness of breath, cough, wheezing, and pleuritic chest pain. 09:18 Back: Negative for injury and pain, : Negative for injury, bleeding, discharge, and swelling, MS/Extremity: Negative for injury and deformity, Skin: Negative for injury, rash, and discoloration, Neuro: Negative for headache, weakness, numbness, tingling, and seizure, Psych: Negative for depression, anxiety, suicide ideation, homicidal ideation, and hallucinations. 09:18 Abdomen/GI: Positive for abdominal pain, nausea and vomiting. Exam: 09:17 Head/Face: Normocephalic, atraumatic. Eyes: Pupils equal round and reactive to light, snw extra-ocular motions intact. Lids and lashes normal. Conjunctiva and sclera are non-icteric and not injected. Cornea within normal limits. Periorbital areas with no swelling, redness, or edema. ENT: Nares patent. No nasal discharge, no septal abnormalities noted. Tympanic membranes are normal and external auditory canals are clear. Oropharynx with no redness, swelling, or masses, exudates, or evidence of obstruction, uvula midline. Mucous membranes moist. Neck: Trachea midline, no thyromegaly or masses palpated, and no cervical lymphadenopathy. Supple, full range of motion without nuchal rigidity, or vertebral point tenderness. No Meningismus. Chest/axilla: Normal chest wall appearance and motion. Nontender with no deformity. No lesions are appreciated. Cardiovascular: Regular rate and rhythm with a normal S1 and S2. No gallops, murmurs, or rubs. Normal PMI, no JVD. No pulse deficits. Respiratory: Lungs have equal breath sounds bilaterally, clear to auscultation and percussion. No rales, rhonchi or wheezes noted. No increased work of breathing, no retractions or nasal flaring. Back: No spinal tenderness. No costovertebral tenderness. Full range of motion. 09:17 Skin: Warm, dry with normal turgor. Normal color with no rashes, no lesions, and no evidence of cellulitis. MS/ Extremity: Pulses equal, no cyanosis. Neurovascular intact. Full, normal range of motion. Neuro: Awake and alert, GCS 15, oriented to person, place, time, and situation. Cranial nerves II-XII grossly intact. Motor strength 5/5 in all extremities. Sensory grossly intact. Cerebellar exam normal. Normal gait. Psych: Awake, alert, with orientation to person, place and time. Behavior, mood, and affect are within normal limits. 09:17 Constitutional: The patient appears alert, awake, frail, cachectic 09:17 Abdomen/GI: Inspection: abdomen appears normal, Bowel sounds: normal, Palpation: mild abdominal tenderness, moderate abdominal tenderness, in all quadrants. Vital Signs: 09:03 BP 125 / 82; Pulse 57; Resp 18 S; Temp 98.8(TE); Pulse Ox 100% on R/A; Weight 43.54 kg kc6 (R); Height 5 ft. 2 in. (157.48 cm) (R); Pain 8/10; 10:05 BP 120 / 83; Pulse 73; Resp 17 S; Pulse Ox 100% on R/A; kc6 11:05 BP 116 / 88; Pulse 86; Resp 22 S; Pulse Ox 100% on R/A; kc6 09:03 Body Mass Index 17.56 (43.54 kg, 157.48 cm) kc6 MDM: 09:04 Patient medically screened. snw 11:35 Differential diagnosis: Nonspecific abd pain. Data reviewed: vital signs, nurses notes, snw lab test result(s), radiologic studies. I considered the following discharge prescriptions or medication management in the emergency department Medications were administered in the Emergency Department. See MAR. Test considered but Not performed: CT: Did not obtain CT as pt recently had CT in this dept. Normal appendix with vomiting and leukocytosis. . Counseling: I had a detailed discussion with the patient and/or guardian regarding: the historical points, exam findings, and any diagnostic results supporting the discharge/admit diagnosis, lab results, radiology results, the need for outpatient follow up, to return to the emergency department if symptoms worsen or persist or if there are any questions or concerns that arise at home. Response to treatment: the patient's symptoms have mildly improved after treatment. Special discussion: Based on the patient's Hx, exam, and Dx evaluation, there is no indication for emergent surgery or inpatient Tx. It is understood by the patient/guardian that if the Sx's persist or worsen they need to return immediately for re-evaluation. Based on the history and exam findings, there is no indication for further emergent testing or inpatient evaluation. I discussed with the patient/guardian the need to see the primary care provider for further evaluation of the symptoms. 05/12 09:12 Order name: Urine Microscopic Only snw 05/12 09:12 Order name: CBC with Diff snw 05/12 09:12 Order name: Chem 7 snw 05/12 09:12 Order name: CPK snw 05/12 09:17 Order name: UDS snw 05/12 09:37 Order name: Urine Dipstick-Ancillary; Complete Time: 09:40 EDMS 05/12 09:38 Order name: CBC with Automated Diff; Complete Time: 11:55 EDMS 05/12 09:53 Order name: Basic Metabolic Panel; Complete Time: 09:55 EDMS 05/12 09:53 Order name: Creatine Phosphokinase; Complete Time: 09:55 EDMS 05/12 11:01 Order name: Urine Microscopic Only; Complete Time: 11:02 EDMS 05/12 11:10 Order name: Urine Drug Screen; Complete Time: 11:13 EDMS 05/12 11:14 Order name: Add On-Lab w 05/12 11:30 Order name: Phosphorus; Complete Time: 11:32 EDMS 05/12 11:55 Order name: CBC Smear Scan; Complete Time: 11:55 EDMS 05/12 09:12 Order name: Urine Dipstick-Ancillary (obtain specimen); Complete Time: 09:42 snw 05/12 09:12 Order name: Urine Test (obtain specimen); Complete Time: 09:42 snw 05/12 09:12 Order name: US Transvaginal Study (Probe) 05/12 10:37 Order name: US; Complete Time: 10:38 EDMS Administered Medications: 09:42 Drug: NS 0.9% (30 ml/kg) 30 ml/kg Route: IV; Rate: bolus; Site: right antecubital; kc6 19:28 Follow up: Response: No adverse reaction; IV Status: Completed infusion; IV Intake: kc6 1050ml 09:48 Drug: Phenergan (promethazine) 6.25 mg Route: IVP; Site: right antecubital; kc6 10:48 Follow up: Response: No adverse reaction; Nausea unchanged kc6 10:57 Drug: TORadol - (ketorolac) 15 mg Route: IVP; Site: right antecubital; kc6 12:06 Follow up: Response: No adverse reaction; Pain is decreased jl7 12:05 Drug: Dicyclomine 20 mg Route: PO; jl7 12:05 Follow up: Response: Medication administered at discharge. jl7 Disposition Summary: 05/12/22 11:33 Discharge Ordered Location: Home snw Condition: Stable snw Diagnosis - Cyclical vomiting, not intractable snw Followup: snw - With: Emergency Department - When: As needed - Reason: Worsening of condition Followup: snw - With: Private Physician - When: 2 - 3 days - Reason: Recheck today's complaints, Continuance of care, Re-evaluation by your physician Discharge Instructions: - Discharge Summary Sheet snw - Cyclic Vomiting Syndrome, Pediatric snw - Dehydration, Adult snw - Nausea and Vomiting, Adult snw - Rehydration, Adult snw Forms: - Medication Reconciliation Form snw - Thank You Letter snw - Antibiotic Education snw - Prescription Opioid Use snw Prescriptions: - Zofran 4 mg Oral Tablet - take 1 tablet by ORAL route every 12 hours As needed; 20 tablet; Refills: 0, snw Product Selection Permitted - promethazine 25 mg Oral Tablet - take 1 tablet by ORAL route every 6 hours As needed; 6 tablet; Refills: 0, snw Product Selection Permitted Signatures: Dispatcher [employer] EDMaria Ines Moise FNP-C DIRECTOR OF QUALITY-Csnw Avtar Joiner, RN RN jl7 Vickie May RN RN kc6
[2022-05-12 11:54] LABS: Blood Morphology Comment NOT SEEN (NOT SEEN); Platelet Estimate ADEQ; Platelets, Giant 1+; White Blood Cell Scan OK (OK)
[2022-05-12] MEDS ORDERED: DICYCLOMINE HCL 10 MG CAP ONE (12:03)
[2022-05-12 12:12] VITALS: TEMP 98.8; O2SAT 100
[2022-05-12 12:14] VITALS: BP 116/88
== END 2022-05-12 12:07 | disposition home or self-care (01) ==
LOC: ER 08:51
DX: R11.15 Cyclical vomiting syndrome unrelated to migraine (principal)
CPT/HCPCS: 85025; 80048; 36415; 82550; 84100; 80307; 76830; J2550; J7030; 81003; 81015; 96365; 96366; 96375; 99284

== ENCOUNTER 2022-07-13 13:13 | Emergency (ER) | payer OTHER ==
--- OUTSIDE RECORDS SUMMARY | 2022-07-13 13:43 | XMS REPORT | Continuity of Care Document ---
:2000 Author Organization [facility] t Address [address] [facility]. Edward. [address] [place] [address] Care Team Providers Name Role Phone Unknown, Physician Primary Care Physician Unavailable DEA DO Attending Clinician Unavailable NERIS DO Attending Clinician Unavailable JAMILA VARGAS Attending Clinician Unavailable NERIS DO Attending Clinician Unavailable Janis Caballero MA Attending Clinician Unavailable Jamila Vargas MD Attending Clinician Radiology Attending Clinician Unavailable RADIOLOGY Attending Clinician Unavailable Doctor Unassigned, Lindsey Attending Clinician Unavailable PEREZ Attending Clinician Unavailable SHELBY SALDANA Attending Clinician Unavailable 2, [facility] Attending Clinician Unavailable Shelby Saldana MD Attending Clinician STEPHAN MINAYA M.D. Attending Clinician Unavailable JAMILA VARGAS Admitting Clinician Unavailable PEREZ Admitting Clinician Unavailable Payers Payer Name Policy Type Policy Number Effective Date Expiration Date Gabi veag [facility] MEDICAID STAR [id number] 2020 00:00:00 [facility] [id number] 2018 [facility] MEDICAID 00:00:00 [facility] [id number] 2020 [facility] 00:00:[address] (O) Problems Condition Condition Condition Status Onset Resolution Last Treating Co mments Source Name Details Category Date Date Treatment Clinician Date Breast Breast Disease Active 2020-03 [facility] asymmetry asymmetry 04-10 [facility] 00:00: 00 Breast Breast Disease Active 2020-03 Overview: UT mass, left mass, left 03-28 [facility] 00:00: g of this 00 note might [...] rs active active ity of problems problems [facility] Contracept Contracept Problem Active U T cory cory Physici education education ans BV BV Problem Active UT (bacterial (bacterial Ph ysici vaginosis) vaginosis) an s Allergies, Adverse Reactions, Alerts Allergy Allergy Status Severity Reaction(s) Onset Inactive Treating Comm ents Source Name Type Date Date Clinician NO KNOWN Drug Active Univers ALLERGIE Class ity of S [facility] Social History Social Habit Start Date Stop Date Quantity Comments Source Exposure to Not sure [facility] SARS-CoV-2 (event) History [facility] o f Alcohol Comment [place] [facility] Alcohol intake 2021-06-22 2021-06-22 Lifetime [place] [facility] 00:00:00 00:00:00 non-drinker (finding) Tobacco use and 2021-01-26 2021-01-26 Smokeless tobacco [facility] exposure 00:00:00 00:00:00 non-user History [facility] 2019-11-30 2019-11-30 1 University o f Alcohol Frequency 00:00:00 00:00:00 [place] [facility] History [facility] 2019-11-30 2019-11-30 99 University o f Alcohol Std 00:00:00 00:00:00 [place] [facility] History [facility] 2019-11-30 2019-11-30 1 University o f Alcohol Binge 00:00:00 00:00:00 [place] [facility] Sex Assigned At 2000 2001 [place] [facility] 00:00:00 00:00:00 Smoking Status Start Date Stop Date Source Never smoked tobacco [facility] Medications Ordered Filled Start Stop Current Ordering [...] every 3 (three) months. promethazin 2021- No [id number] 12.5mg Take 1 UT e 04-03 [id number] tablet Health (Phenergan) 00:00: 05:59 (12.5 mg 12.5 MG 00 :00 total) by tablet mouth every 8 (eight) hours if needed for nausea or vomiting for up to 5 days. naproxen 2021- No [id number] 500mg Take 1 UT (Naprosyn) 04-02 tablet Health 500 MG 00:00: 05:59 (500 mg tablet 00 :00 total) by mouth 2 (two) times a day with meals. naproxen 2021- No [id number] 500mg Take 1 UT (Naprosyn) 04-02 tablet Health 500 MG 00:00: 05:59 (500 mg tablet 00 :00 total) by mouth 2 (two) times a day with meals. promethazin 2021- No [id number] 12.5mg Q6H Insert 0.5 UT e 04-02 suppositor Health (Phenergan) 00:00: 05:59 ies (12.5 25 MG 00 :00 mg total) suppository into the rectum every 6 (six) hours if needed for nausea for up to 5 days. promethazin 2021-0 2021- No [id number] 12.5mg Q6H Insert 0.5 UT e 04-02 [...] every 3 (three) months. acetaminoph 2021- No [id number] 1{tbl} Q6H Take 1 UT en-codeine 1-05 -11 tablet by [facility] (Tylenol w/ 00:00: 05:59 mouth Codeine #3) 00 :00 every 6 300-30 MG (six) tablet hours if needed for severe pain for up to 5 days. acetaminoph 2021-2021- No [id number] 1{tbl} Q6H Take 1 UT en-codeine -07 19-11 tablet by [facility] (Tylenol w/ 00:00: 05:59 mouth Codeine #3) 00 :00 every 6 300-30 MG (six) tablet hours if needed for severe pain for up to 5 days. medroxyPROG 2020-03 Yes 150mg Inject 150 UT ESTERone 1-29 mg into Health (Depo-Prove 09:18: the ra) 150 41 shoulder, MG/ML thigh, or injection buttocks every 3 (three) months. medroxyPROG 2020- Yes 150mg Inject 150 UT ESTERone 1-12 mg into Health (Depo-Prove 11:10: the ra) 150 30 shoulder, MG/ML thigh, or injection buttocks every 3 (three) months. medroxyPROG 2020- Yes 150mg Inject 150 UT ESTERone 1-08 mg into Health (Depo-Prove 13:39: the ra) 150 48 shoulder, MG/ML thigh, or injection buttocks every 3 (three) months. No known 2020-03 No Univers medications 0-19 ity of 14:14: [address] No known 2020-03 No Univers medications 0-19 ity of 14:14: [address] No known 2020-03 No Univers medications 0-19 ity of 14:14: [address] Clindesse 2 Clindesse 2 2020-0 Yes STEPHAN [...] 2021-04-06 15:37:00 17.01 kg[facility]m2 [facility] BMI 2021-03-30 19:47:00 17.01 kg/m2 [facility] Body mass index 2021-03-30 19:47:00 1.54 % [facility] (BMI) [Percentile] Per age and sex Oxygen saturation in 2021-03-30 19:47:00 98 /min [facility] Arterial blood by Pulse oximetry Systolic blood 2021-03-30 19:47:00 100 mm[Hg] [facility] pressure Diastolic blood 2021-03-30 19:47:00 66 mm[Hg] [facility] pressure Heart rate 2021-03-30 19:47:00 98 /min [facility] Body temperature 2021-03-30 19:47:00 36.22 Darya [facility] Body height 2021-03-30 19:47:00 157.5 cm [facility] Body weight 2021-03-30 19:47:00 42.185 kg [facility] Systolic blood 2021-03-26 14:38:00 107 mm[Hg] UT [...] Oxygen saturation in 2021-01-26 19:31:00 99 /min [facility] Arterial blood by Pulse oximetry Systolic blood 2021-01-06 19:12:00 105 mm[Hg] [facility] Diastolic blood 2021-01-06 19:12:00 70 mm[facility]Hg[facility] 2021-01-06 19:12:00 82 /[facility] Body temperature 2021-01-06 19:12:00 [facility].44 [facility] 2021-01-06 19:12:00 16 /min [facility] Body weight 2021-01-06 19:12:00 43.545 kg [facility] Systolic blood 2019-05-07 10:05:00 104 mm[Hg] UT [...] Procedure Date / Time Performed Performing Clinician Sourc e . [facility] - Affirm VPIII (BV 2019-05-07 00:00:00 [facility]) . [facility] - GC/Chlamydia 2019-05-07 00:00:00 [facility] P hysicians Encounters Start End Encounter Admission Attending Care Care Encounter Source Date/Time Date/Time Type Type Clinicians Facility Department ID 2021-12-30 Outpatient [facility] [id number] [place] 12:47:02 [id number] [facility] 2021-04-03 Outpatient [place], [facility] [id number] [place] 13:20:22 [facility] 2021-03-24 Outpatient [place], [facility] [id number] [place] 14:40:53 [facility] 2021-03-17 Outpatient DO, [facility] [id number] UT 11:05:58 [facility] 2021-02-03 Outpatient [place], [facility] [id number] [place] 11:27:03 [facility] 2021-01-21 Outpatient [place], [facility] [id number] [place] 08:52:58 [facility] 2021-01-15 Outpatient Brian VARGAS [facility] TANVI [id number] Univers 10:22:15 JAMILA wisdom [facility] 2022-07-06 2022-07-06 Outpatient SFA SFA [id number] Amadeo 13:19:42 13:19:42 [id number] F Juan Miguel 2021-06-22 2021-06-22 Office Ernestina, UTP 6410 [id number] [place] 09:15:00 10:19:03 Visit Dea P[facility] [id number] Health [id number] [id number] 5 2021-04-27 2021-04-27 Office Ernestina, UTP 6410 [id number] 1 [id number] [place] 09:45:00 10:42:08 Visit Dea P[place]ER[place] [id number] Health [id number] [id number] 2021-04-06 2021-04-06 Office Ernestina, UTP 6410 1.2.840.114 1 [id number] [place] 09:30:00 11:12:[address] [id number] Health [id number] [id number] 2021-03-30 2021-03-30 Office EMMIE DO [id number] [place] 13:30:00 13:45:00 Visit NERIS SOW [id number] H [facility] MEDICAL 9.2.7.2.686 [facility] [id number] 1 2021-03-26 2021-03-26 Office Ernestina, UTP 6410 [id number] 1 [id number] [place] 08:30:00 09:07:[address] [id number] Health [id number] [id number] 5 2021-03-24 2021-03-24 Outpatient [facility] [address] [facility] 05:20:00 23:59:00 NERIS 2021-02-27 2021-02-27 Orders Janis Caballero UTP 6410 [id number] [id number] [place] 00:00:00 00:00:[address] [id number] Health 9.2.7.2.686 [id number] 5 2021-01-30 2021-01-30 Office EMMIE Do 6410 1.2.840.114 1 [id number] [place] 10:15:10 11:45:56 Visit Dea PICKERING [id number] Health 9.2.7.2.686 [id number] 5 2021-01-26 2021-01-26 Office EMMIE Do 1.2.091.461 [id number] [place] 12:40:56 14:11:32 Visit Neris SOW 350.1.13.58 H [facility] 9.2.7.2.686 [facility] [id number] 1 2021-01-19 2021-01-19 Outpatient R ALICIA [facility] [id number] Univers 09:45:00 09:45:00 JAMILA wsidom [facility] 2021-01-09 2021-01-09 [facility] 1..840.114 [id number] Univers 00:00:00 00:00:00 Surgery Jamila Jose [id number] i [place] [id number] Ms dical nal [facility] 2021-01-06 2021-01-06 [facility] [id number] [facility] 13:28:17 15:48:00 Visit Jamila sAhley Rebeca 350.1.13.10 i [place] [id number] Ms dical nal [facility] 2021-01-06 2021-01-06 Outpatient R ALICIA [facility] [id number] Univers 14:30:00 14:30:00 JAMILA wisdom [facility] 2020-12-30 2020-12-[address] [facility] 1.2.840.114 [id number] Univers 09:00:00 23:59:00 Encounter Rebeca [id number] [place] [id number] [facility] 806 Branch 2020-12-30 2020-12-30 Outpatient R RADIOLOGY [facility] [id number] Univers 00:00:00 00:00:00 ity [facility] 2020-12-30 2020-12-30 Orders Doctor LUCIE 1.2.840.114 [id number] Univers 00:00:00 00:00:00 Only Unassigned, MARK [id number] ity of [place] [facility] 4.2.7.2.686 [place] [id number] [facility] 009 Branch 2020-12-19 2020-12-19 Hospital Radiology UNIVERSIT 1.2.840.114 [id number] Univers 11:21:36 23:59:00 Encounter Y HEALTH [id number] ity of [place]2.[place] [id number] [facility] [address] Branch 2020-12-19 2020-12-19 Outpatient R RADIOLOGY [facility] [id number] Univers 00:00:00 00:00:00 ity [facility] 2020-07-21 2020-07-21 Outpatient [facility] [id number] [place] 01:34:00 01:34:00 0503 [facility] 2020-04-29 2020-04-29 Outpatient R ADUM, [facility] [id number] Univers 13:00:00 13:00:00 SHELBY wisdom [facility] 2020-04-22 2020-04-22 Outpatient R ADUM, [facility] [id number] Univers 11:00:00 11:00:00 SHELBY [facility] 2020-04-10 2020-04-10 Outpatient R ADUM, [facility] [id number] Univers 14:00:00 14:00:00 SHELBY roberto [facility] 2019-12-28 2019-12-28 Outpatient R ADUM, [facility] [id number] Univers 09:00:00 09:00:00 SHELBY roberto [facility] 2019-11-30 2019-11-30 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 1.2.840.114 [id number] Univers 09:00:41 09:15:41 Visit Adum, Shelby Jose [id number] [id number] [id number] [facility] 353 [facility] 2019-11-30 2019-11-30 Office [facility] 1.2.840.114 [id number] Univers 07:58:23 08:52:17 Visit Shelby Jose [id number] [place] [id number] [facility] 134 [facility] 2019-11-30 2019-11-30 Outpatient R AD, [facility] [id number] Univers 08:30:00 08:30:00 SHELBY itroberto [facility] 2019-11-30 2019-11-30 Orders Doctor LUCIE 1.2.840.114 [id number] Univers 00:00:00 00:00:00 Only Unassigned, MARK [id number] ity of [place] [facility] 4.2.7.2.686 [place] [id number] [address] 2019-11-30 2019-11-30 Letter [facility] 1.2.840.114 [id number] Univers 00:00:00 00:00:00 (Out) Shelby Jose [id number] [place] [id number] [facility] [address] [facility] 2019-05-07 2019-05-07 Appointmen [facility]MIE [id number] [place] 10:00:00 10:00:00 michaela ROTHMAN M.D. lty - Ph Yesy Curry M.D. Results Test Description Test Time Test Comments Results Result Comments Source CT/NG, NAAT, URINE 2022-07-07 16:50:52 Test Item Value Reference Range Interpretation Comme nts CHLAMYDIA, NAAT, URINE (test NEGATIVE NEGATIVE Testing is performed with Curt code = 32503) JORGE 6800/880 0 systems usingreal-time polymerase chain reaction (PCR) method. A negative result does not exclude low level infection, spec imensampling error, or collection e rror. GONORRHEA, NAAT, URINE (test NEGATIVE NEGATIVE Testing is performed with Curt code = 25799) JORGE 6800/880 0 systems usingreal-time polymerase chain reaction (PCR) method. A negative result does not exclude low level infection, spec imensampling error, or collection e rror. COMPREHENSIVE METABOLIC [id number] 09:26:47 Test Item Value Reference Range Interpretation Comments GLUCOSE (test code = 71 MG/DL 70-99 2216) BUN (test code = 8 MG/DL 6-20 2207) CREATININE (test 0.81 MG/DL 0.60-1.30 code = 2214) eGFR (2020 CKD-EPI) 106 >60 (test code = 68182) ML/MIN/1.73 CALC BUN/CREAT (test 10 RATIO 6-28 code = 2235) SODIUM (test code = 143 MEQ/L 906-976 6198) POTASSIUM (test code 4.1 MEQ/L 3.5-5.4 = 2227) CHLORIDE (test code 102 MEQ/L 95-107 = 2214) CARBON DIOXIDE (test 23 MEQ/L 19-31 code = 2206) CALCIUM (test code = 9.9 MG/DL 8.5-10.5 2208) PROTEIN, TOTAL (test 7.4 G/DL 6.1-8.3 code = 2229) ALBUMIN (test code = 4.7 G/DL 3.5-5.2 2200) CALC GLOBULIN (test 2.7 G/DL 1.9-3.7 code = 2240) CALC A/G RATIO (test 1.7 RATIO 1.0-2.6 code = 2234) BILIRUBIN, TOTAL 0.4 MG/DL See_Comment [Automated message] (test code = 2207) The syste m which generated this result transmit yonatan reference range : <=1.2. The refe rence range was not u sed to interpret th is result as normal/abnormal . ALKALINE PHOSPHATASE 50 U/L 39-117 (test code = 2204) AST (test code = 20 U/L 9-40 2217) ALT (test code = 8 U/L 5-40 2218) LIPID [id number] 09:26:47 Test Item Value Reference Range Interpretation Comments CHOLESTEROL (test 147 MG/DL <200 code = 2210) TRIGLYCERIDES (test 70 MG/DL <150 code = 2232) HDL CHOLESTEROL (test 70 MG/DL >39 code = 2220) CALC LDL CHOL (test 62 MG/DL <100 NOTE: C ALCULATED LDL code = 2237) IS BASED ON MONCHO-FOWLER METHOD WHICHINCLUDES ADJUSTABLE TRIGLYCERIDE:VL DL CHOLESTEROL RAT IO.THIS FACTOR VARIES B Y MEASURED TRIGLY CERIDE AND NON-HDLCHOL ESTEROL CONCENTRATIONS WITH INCREASED CALCU LATED LDL SEENIN HIGH ER TRIGLYCERIDE OR LOWER NON-HDL SPECIME NS. FOR MOREINFORMATION , SEE CLIENT ANNOUNCE MENT AT [email or web address] RATIO LDL/HDL 0.89 RATIO <3.22 (test code = 2238) HEMOGLOBIN [id number] 05:27:49 Test Item Value Reference Range Interpretation Comments HEMOGLOBIN A1c (test code = 55730) 5.2 % 4.2-5.6 CBC W/AUTO DIFF WITH [id number] 04:37:04 Test Item Value Reference Range Interpretation Comments WBC (test code = 5.5 K/UL 3.5-11.0 1001) RBC (test code = 4.56 M/UL 3.80-5.40 1002) HEMOGLOBIN (test code 13.6 G/DL 11.5-15.5 = 1003) HEMATOCRIT (test code 40.9 % 34.0-45.0 = 1004) MCV (test code = 89.7 fL 80.0-99.0 1005) MCH (test code = 29.8 PG 25.0-33.0 1006) MCHC (test code = 33.3 G/DL 31.0-36.0 1007) RDW (test code = 13.9 % 11.5-15.0 1038) NEUTROPHILS (test 53.2 % code = 1008) LYMPHOCYTES (test 31.8 % code = 1010) MONOCYTES (test code 8.6 % = 1011) EOSINOPHILS (test 4.9 % code = 1012) BASOPHILS (test code 1.1 % = 1013) IMMATURE GRANULOCYTES 0.4 % (test code = 1036) NUCLEATED RBCS (test 0.0 /100 WBC'S See_Comment [Aut omated code = 1065) message] The sy stem which generated this result transmitted reference range : 0.0. The refere nce range was not u sed to interpret th is result as normal/abnormal . PLATELET COUNT (test 232 K/UL 130-400 code = 1015) ABSOLUTE NEUTROPHILS 2.91 K/UL 1.50-7.50 (test code = 1066) ABSOLUTE LYMPHOCYTES 1.74 K/UL 1.00-4.00 (test code = 1067) ABSOLUTE MONOCYTES 0.47 K/UL 0.20-1.00 (test code = 1068) ABSOLUTE EOSINOPHILS 0.27 K/UL 0.00-0.50 (test code = 1040) ABSOLUTE BASOPHILS 0.06 K/UL 0.00-0.20 (test code = 1069) ABS IMMATURE 0.02 K/UL 0.00-0.10 GRANULOCYTES (test code = 1020) ABS NUCLEATED RBCS 0.00 K/UL 0.00-0.11 (test code = 49092) RPR REFLEX TO T. PALLIDUM - [id number] 04:05:34 Test Item Value Reference Range Interpretation Comments RPR (test code = NON-REACTIVE NON-REACTIVE 01962) RPR TITER (test NOT INDIC. NOT INDIC. [facility] has important code = 3500) TITER pathology staff changes effective 05/19. New patholo gy staff will provide uninterrupted, excellent patie nt care and clinical consultation. S ee URL: [email or web address]. UNLESS OTHERWISE INDIC ATED, ALL TESTING PER FORMED AT [facility], [id number] [place] [address] DIRECTOR: Antonio TONG SONJA NUMBER [id number] CAP ACCREDITATION N O. [id number] HIV 1/2 4TH GEN, RFLX [id number] 04:05:11 Test Item Value Reference Range Interpretation Comments HIV 1/2 4TH GEN, RFLX CONF (test NON-REACTIVE NON-REACTIVE code = 3514) HEPATITIS PANEL, [id number] 04:05:11 Test Item Value Reference Range Interpretation Comments HEPATITIS A IgM (test NON-REACTIVE NON-REACTIVE code = 33642) HEPATITIS B CORE IgM NON-REACTIVE NON-REACTIVE (test code = 4644) HEPATITIS B SURF AG NON-REACTIVE NON-REACTIVE (test code = 2739) HEPATITIS C ANTIBODY NON-REACTIVE NON-REACTIVE (test code = 4675) INTERPRETATION (NOTE) Hepatitis A HEPATITIS A: (test code sero logy shows no = 2552) evidence of acu te hepatitis A. INTERPRETATION (NOTE) Hepatitis B HEPATITIS B: (test code sero logy shows no = 46047) evidence of acu te hepatitis B and no indication of exposure to hepatitis B vir us in the previous lizzy eight months. INTERPRETATION (NOTE) Hepatitis C HEPATITIS C: (test code sero logy shows no = 41855) evidence of exposure to hepatitisC viru s at this time. I t can take up to 12 months after exposure tothe hepatitis C vir us for antibodies to become detectab le in the blood in certain patient s. . [facility] - [id number] 00:00:00 Test Item Value Reference Range Interpretation Comments Case (test code = Click ImageLink button N Case) for report. Specimen 1 (test code Click ImageLink button N = Specimen 1) for report. [facility]
--- NOTE | 2022-07-13 16:54 | EDPHYS ---
Physician Documentation [facility] Name: Surinder Bach Age: 22 yrs Sex: Female : 2000 Arrival Date: 07/13/2022 Time: 13:13 Bed IW1 Private MD: ED Physician Alessio Brennan HPI: 07/13 13:20 This 22 yrs old Female presents to ER via Ambulatory with complaints of jh7 Abdominal Pain, Vomiting. 13:20 The patient presents with abdominal pain right lower quadrant. Onset: The jh7 symptoms/episode began/occurred last night. The symptoms do not radiate. Associated signs and symptoms: Pertinent positives: nausea, vomiting, and diarrhea, Pertinent negatives: fever. 22-year-old female complains of right lower quadrant pain, vomiting, and diarrhea since 4 AM last night. She denies any fever. Reports that this is happened before when she starts her menstrual cycle.. 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 - Social history:: Smoking status: Patient denies any tobacco usage or history of. ROS: 13:20 Constitutional: Negative for fever, chills, and weight loss, Eyes: Negative for injury, jh7 pain, redness, and discharge, Neck: Negative for injury, pain, and swelling, Cardiovascular: Negative for chest pain, palpitations, and edema, Respiratory: Negative for shortness of breath, cough, wheezing, and pleuritic chest pain, Back: Negative for injury and pain, MS/Extremity: Negative for injury and deformity, Skin: Negative for injury, rash, and discoloration, Neuro: Negative for headache, weakness, numbness, tingling, and seizure. 13:20 Abdomen/GI: Positive for abdominal pain, nausea, vomiting, and diarrhea. 13:20 All other systems are negative. Exam: 13:20 Constitutional: This is a well developed, well nourished patient who is awake, alert, jh7 and in no acute distress. ENT: Nares patent. No nasal discharge, no septal abnormalities noted. Tympanic membranes are normal and external auditory canals are clear. Oropharynx with no redness, swelling, or masses, exudates, or evidence of obstruction, uvula midline. Mucous membranes moist. Neck: Trachea midline, no thyromegaly or masses palpated, and no cervical lymphadenopathy. Supple, full range of motion without nuchal rigidity, or vertebral point tenderness. No Meningismus. Cardiovascular: Regular rate and rhythm with a normal S1 and S2. No gallops, murmurs, or rubs. Normal PMI, no JVD. No pulse deficits. Respiratory: Lungs have equal breath sounds bilaterally, clear to auscultation and percussion. No rales, rhonchi or wheezes noted. No increased work of breathing, no retractions or nasal flaring. Back: No spinal tenderness. No costovertebral tenderness. Full range of motion. Skin: Warm, dry with normal turgor. Normal color with no rashes, no lesions, and no evidence of cellulitis. MS/ Extremity: Pulses equal, no cyanosis. Neurovascular intact. Full, normal range of motion. Neuro: Awake and alert, GCS 15, oriented to person, place, time, and situation. Normal gait. 13:20 Abdomen/GI: Inspection: abdomen appears normal, Bowel sounds: normal, Palpation: soft, mild abdominal tenderness, in the right lower quadrant. Vital Signs: 13:26 BP 115 / 85; Pulse 78; Resp 17; Temp 97.8; Pulse Ox 100% ; Weight 45.36 kg; Height 5 ap3 ft. 2 in. ; Pain 8/10; 13:26 Body Mass Index 18.29 (45.36 kg, 157.48 cm) ap3 13:26 Pain Scale: Adult ap3 MDM: 13:18 Patient medically screened. 7 16:30 Differential diagnosis: appendicitis, gastritis, urinary tract infection, Viral 7 gastroenteritis. Data reviewed: vital signs, nurses notes. ED course: A few hours after being evaluated, the patient was called back from the lobby multiple times for labwork with no answer. Triage nurse called the patient via phone with no answer.. 07/13 13:25 Order name: IV Saline Lock [facility] 07/13 13:25 Order name: Labs collected and sent [facility] Administered Medications: No medications were administered Disposition Summary: 07/13/22 16:53 Discharge Ordered Location: Home [facility] Problem: new jh7 Symptoms: are unchanged [facility] Condition: Fair 7 Diagnosis - Lower abdominal pain, unspecified jh7 - Nausea with vomiting, unspecified 7 Followup: [facility] - With: Private Physician - When: 2 - 3 days - Reason: Recheck today's complaints Forms: - Medication Reconciliation Form 7 - Thank You Letter 7 - Antibiotic Education 7 - Prescription Opioid Use [facility] Addendum: 07/14/2022 17:14 Co-signature as Attending Physician, Alessio Brennan MD I reviewed the patient's care r n provided by the Advanced Practice Provider and agree with the diagnosis and treatment plan. Signatures: Dispatcher [employer] EDAlessio Bhatti MD MD rn Nicky Logan RN RN ap3 Shalini Mallory, MIGUEL [employer] COPY EDITOR [facility]
--- NOTE | 2022-07-13 16:54 | ER ---
Nurse's Notes [facility] Name: Surinder Bach Age: 22 yrs Sex: Female : 2000 Arrival Date: 07/13/2022 Time: 13:13 Bed IW1 Private MD: Diagnosis: Lower abdominal pain, unspecified;Nausea with vomiting, unspecified Presentation: 07/13 13:26 Chief complaint: Patient states: she has abdominal pain, nausea and vomiting that ap3 started at approx 0400 this morning. Coronavirus screen: At this time, the client does not indicate any symptoms associated with coronavirus-19. Ebola Screen: No symptoms or risks identified at this time. Initial Sepsis Screen: Does the patient meet any 2 criteria? No. Patient's initial sepsis screen is negative. Does the patient have a suspected source of infection? No. Patient's initial sepsis screen is negative. Risk Assessment: Do you want to hurt yourself or someone else? Patient reports no desire to harm self or others. Onset of symptoms was July 13, 2022 at 04:30. 13:26 Method Of Arrival: Ambulatory ap3 13:26 Acuity: ANASTASIIA 3 ap3 Triage Assessment: 13:28 General: Appears uncomfortable, Behavior is calm, cooperative, appropriate for age. ap3 Pain: Complains of pain in abdomen Pain began 0430 this morning. Neuro: Level of Consciousness is awake, alert, obeys commands, Oriented to person, place, time, situation. Cardiovascular: Patient's skin is warm and dry. Respiratory: Airway is patent Respiratory effort is even, unlabored, Respiratory pattern is regular, symmetrical. GI: Reports lower abdominal pain, nausea, vomiting. 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 - Social history:: Smoking status: Patient denies any tobacco usage or history of. Screenin:29 Abuse screen: Denies threats or abuse. Nutritional screening: No deficits noted. ap3 Tuberculosis screening: No symptoms or risk factors identified. Assessment: 15:36 Reassessment: attempted to call pt from [employer]. aa5 16:15 Reassessment: attempted to call pt from [employer]. pt not in [employer]. aa5 Vital Signs: 13:26 BP 115 / 85; Pulse 78; Resp 17; Temp 97.8; Pulse Ox 100% ; Weight 45.36 kg; Height 5 ap3 ft. 2 in. ; Pain 8/10; 13:26 Body Mass Index 18.29 (45.36 kg, 157.48 cm) ap3 13:26 Pain Scale: Adult ap3 ED Course: 13:16 Patient arrived in ED. mr 13:18 Shalini Mallory FNP [facility] jh7 13:18 Alessio Brennan MD is Attending Physician. jh7 13:28 Triage completed. ap3 13:29 Arm band placed on left wrist. ap3 Administered Medications: No medications were administered Medication: 16:44 VIS not applicable for this client. aa5 Outcome: 16:53 Discharge ordered by . 7 16:53 Patient left the ED. aa5 16:53 Eloped from waiting room, after seeing physician Time discovered patient gone: June 5 2022 at 16:46 Signatures: Ashleigh Wilks mr Dodge, Aele, RN RN aa5 Nicky Logan RN RN ap3 Shalini Mallory FNP FNP [facility] Corrections: (The following items were deleted from the chart) 17:04 17:04 Patient left the ED. aa5 aa5
[2022-07-13 17:25] VITALS: BP 115/85; TEMP 97.8; O2SAT 100
== END 2022-07-13 17:04 | disposition home or self-care (01) ==
LOC: ER 13:13
DX: R10.31 Right lower quadrant pain (principal); R11.2 Nausea with vomiting, unspecified
CPT/HCPCS: 99281